=== PATIENT | male | born 1990 | race Caucasian/White ===

== ENCOUNTER 2020-07-04 18:41 | Observation (INO) | payer OTHER ==
[2020-07-04] MEDS ORDERED: SODIUM CHLORIDE 0.9% 1,000 ML IV STA ×2 (18:48)
[2020-07-04] MEDS ORDERED: ONDANSETRON 4 MG/2 ML VIAL IVP STA (18:48)
--- NOTE | 2020-07-04 18:53 | ED ---
Nausea/Vomiting/Diarrhea HPI - General Stated complaint: overdose Time Seen by Provider: 07/04/20 18:41 Source: patient, EMS, RN notes reviewed Mode of arrival: EMS - History of Present Illness Initial comments: This is a [age]-year-old male with a history of substance abuse who does admit to snorting heroin and crack cocaine earlier today states he hasn't felt well all day he did have a headache but denies any right now he also complains of persistent nausea vomiting and generalized weakness. No loss of consciousness he did call 911 himself due to fear he overdosed. He was brought in by EMS. He denies any other substance abuse any other complaints no trauma no other modifying factors MD complaint: nausea, vomiting, other - Related Data Home Medications Medication Instructions Recorded Confirmed No Known Home Medications 07/04/20 07/04/20 Allergies Allergy/AdvReac Type Severity Reaction Status Date / Time No Known Allergies Allergy Verified 07/04/20 20:20 Review of Systems ROS Statement: Those systems with pertinent positive or pertinent negative responses have been documented in the HPI. ROS Other: All systems not noted in ROS Statement are negative. General Exam - General Exam Comments Initial Comments: This is a well-developed well-nourished awake alert male who is actively vomiting during the initial evaluation General appearance: alert, anxious, in distress Head exam: Present: atraumatic, normocephalic, normal inspection Eye exam: Present: normal appearance, PERRL, EOMI. Absent: scleral icterus, conjunctival injection, periorbital swelling ENT exam: Present: mucous membranes dry Neck exam: Present: normal inspection. Absent: tenderness, meningismus, lymphadenopathy Respiratory exam: Present: normal lung sounds bilaterally. Absent: respiratory distress, wheezes, rales, rhonchi, stridor Cardiovascular Exam: Present: regular rate, normal rhythm, normal heart sounds. Absent: systolic murmur, diastolic murmur, rubs, gallop, clicks GI/Abdominal exam: Present: soft, normal bowel sounds. Absent: distended, tenderness, guarding, rebound, rigid Extremities exam: Present: normal inspection, full ROM, normal capillary refill. Absent: tenderness, pedal edema, joint swelling, calf tenderness Back exam: Present: normal inspection Neurological exam: Present: alert, oriented X3, CN II-XII intact Psychiatric exam: Present: normal affect, normal mood Skin exam: Present: warm, dry, intact, normal color. Absent: rash Course Vital Signs 07/04/20 07/04/20 18:49 20:00 Temperature 98.3 F Pulse Rate 68 77 Respiratory 18 20 Rate Blood Pressure 124/89 113/76 O2 Sat by Pulse 96 96 Oximetry Medical Decision Making - Medical Decision Making I did discuss the findings the patient he does have elevated troponin as well as elevated lactic acid which is likely secondary to dehydration. Patient will be admitted for rule out. Case is discussed with Dr. Kiser the patient does state he is feeling improved however. - Lab Data Result diagrams: 07/04/20 19:09 07/04/20 19:09 Lab Results 07/04/20 07/04/20 07/04/20 Range/Units 19:09 19:09 19:09 WBC 18.0 H (3.8-10.6) k/uL RBC 4.66 (4.30-5.90) m/uL Hgb 14.7 (13.0-17.5) gm/dL Hct 45.4 (39.0-53.0) % MCV 97.5 (80.0-100.0) fL MCH 31.5 (25.0-35.0) pg MCHC 32.3 (31.0-37.0) g/dL RDW 12.8 (11.5-15.5) % Plt Count 237 (150-450) k/uL MPV 7.7 Neutrophils % 88 % Lymphocytes % 5 % Monocytes % 5 % Eosinophils % 1 % Basophils % 0 % Neutrophils # 15.9 H (1.3-7.7) k/uL Lymphocytes # 1.0 (1.0-4.8) k/uL Monocytes # 0.8 (0-1.0) k/uL Eosinophils # 0.2 (0-0.7) k/uL Basophils # 0.0 (0-0.2) k/uL Sodium 143 (137-145) mmol/L Potassium 4.7 (3.5-5.1) mmol/L Chloride 107 (98-107) mmol/L Carbon Dioxide 22 (22-30) mmol/L Anion Gap 14 mmol/L BUN 16 (9-20) mg/dL Creatinine 1.27 H (0.66-1.25) mg/dL Est GFR (CKD-EPI)AfAm 86 (>60 ml/min/1.73 sqM) Est GFR (CKD-EPI)NonAf 74 (>60 ml/min/1.73 sqM) Glucose 91 (74-99) mg/dL Plasma Lactic Acid Nick 5.3 H* (0.7-2.0) mmol/L Calcium 8.8 (8.4-10.2) mg/dL Magnesium 2.3 (1.6-2.3) mg/dL Total Bilirubin 0.3 (0.2-1.3) mg/dL AST 36 (17-59) U/L ALT 37 (4-49) U/L Alkaline Phosphatase 59 (38-126) U/L Creatine Kinase 219 H (55-170) U/L Troponin I (0.000-0.034) ng/mL Total Protein 8.5 H (6.3-8.2) g/dL Albumin 5.4 H (3.5-5.0) g/dL Amylase 45 (30-110) U/L Lipase 107 (23-300) U/L Urine Opiates Screen (NotDetected) Ur Oxycodone Screen (NotDetected) Urine Methadone Screen (NotDetected) Ur Propoxyphene Screen (NotDetected) Ur Barbiturates Screen (NotDetected) U Tricyclic Antidepress (NotDetected) Ur Phencyclidine Scrn (NotDetected) Ur Amphetamines Screen (NotDetected) U Methamphetamines Scrn (NotDetected) U Benzodiazepines Scrn (NotDetected) Urine Cocaine Screen (NotDetected) U Marijuana (THC) Screen (NotDetected) 07/04/20 07/04/20 Range/Units 19:09 20:16 WBC (3.8-10.6) k/uL RBC (4.30-5.90) m/uL Hgb (13.0-17.5) gm/dL Hct (39.0-53.0) % MCV (80.0-100.0) fL MCH (25.0-35.0) pg MCHC (31.0-37.0) g/dL RDW (11.5-15.5) % Plt Count (150-450) k/uL MPV Neutrophils % % Lymphocytes % % Monocytes % % Eosinophils % % Basophils % % Neutrophils # (1.3-7.7) k/uL Lymphocytes # (1.0-4.8) k/uL Monocytes # (0-1.0) k/uL Eosinophils # (0-0.7) k/uL Basophils # (0-0.2) k/uL Sodium (137-145) mmol/L Potassium (3.5-5.1) mmol/L Chloride (98-107) mmol/L Carbon Dioxide (22-30) mmol/L Anion Gap mmol/L BUN (9-20) mg/dL Creatinine (0.66-1.25) mg/dL Est GFR (CKD-EPI)AfAm (>60 ml/min/1.73 sqM) Est GFR (CKD-EPI)NonAf (>60 ml/min/1.73 sqM) Glucose (74-99) mg/dL Plasma Lactic Acid Nick (0.7-2.0) mmol/L Calcium (8.4-10.2) mg/dL Magnesium (1.6-2.3) mg/dL Total Bilirubin (0.2-1.3) mg/dL AST (17-59) U/L ALT (4-49) U/L Alkaline Phosphatase (38-126) U/L Creatine Kinase (55-170) U/L Troponin I 0.084 H* (0.000-0.034) ng/mL Total Protein (6.3-8.2) g/dL Albumin (3.5-5.0) g/dL Amylase (30-110) U/L Lipase (23-300) U/L Urine Opiates Screen Not Detected (NotDetected) Ur Oxycodone Screen Not Detected (NotDetected) Urine Methadone Screen Not Detected (NotDetected) Ur Propoxyphene Screen Not Detected (NotDetected) Ur Barbiturates Screen Not Detected (NotDetected) U Tricyclic Antidepress Not Detected (NotDetected) Ur Phencyclidine Scrn Not Detected (NotDetected) Ur Amphetamines Screen Not Detected (NotDetected) U Methamphetamines Scrn Not Detected (NotDetected) U Benzodiazepines Scrn Not Detected (NotDetected) Urine Cocaine Screen Detected H (NotDetected) U Marijuana (THC) Screen Not Detected (NotDetected) - EKG Data -: EKG Interpreted by Me EKG shows normal: sinus rhythm EKG Comments: Sinus rhythm a 96 VT interval 162 QRS 100 QT since QTC 398/50 , prolonged QT - Radiology Data Radiology results: report reviewed (Imaging reviewed no acute findings.), image reviewed Disposition Clinical Impression: Substance abuse, Elevated troponin, Lactic acidosis, Dehydration, Gastritis Disposition: ADMITTED IP TO THIS [facility] Condition: Fair Referrals: None,Stated [Primary Care Provider] - 1-2 days
[2020-07-04 19:22] LABS: Basophils % (A) 0 %; Eosinophils # (A) 0.2 k/uL (0-0.7); Eosinophils % (A) 1 %; HCT 45.4 % (39.0-53.0); HGB 14.7 gm/dL (13.0-17.5); Lymphocytes % (A) 5 %; MCH 31.5 pg (25.0-35.0); MCHC 32.3 g/dL (31.0-37.0); MCV 97.5 fL (80.0-100.0); Mean Platelet Volume 7.7; Monocytes # (A) 0.8 k/uL (0-1.0); Monocytes % (A) 5 %; Neutrophils # (A) 15.9 k/uL (1.3-7.7); Neutrophils % (A) 88 %; Platelet Count 237 k/uL (150-450); RBC 4.66 m/uL (4.30-5.90); RDW 12.8 % (11.5-15.5)
[2020-07-04 19:32] LABS: Albumin 5.4 g/dL (3.5-5.0); Calcium 8.8 mg/dL (8.4-10.2); Magnesium 2.3 mg/dL (1.6-2.3); Potassium 4.7 mmol/L (3.5-5.1); Total Bilirubin 0.3 mg/dL (0.2-1.3); Total Protein 8.5 g/dL (6.3-8.2)
--- NOTE | 2020-07-04 19:45 | CT ---
EXAMINATION TYPE: CT brain wo con DATE OF EXAM: 07/04/2020 COMPARISON: None HISTORY: Headache, possible overdose. CT DLP: 1189.4 mGycm Automated exposure control for dose reduction was used. Ventricles and sulci appear normal. There is no mass effect nor midline shift. There is no evidence o f intracranial hemorrhage. Calvarium is intact. Skull base is intact. Sella turcica is normal. IMPRESSION: Normal unenhanced head CT scan.
--- NOTE | 2020-07-04 19:46 | XR ---
EXAMINATION TYPE: XR KUB DATE OF EXAM: 07/04/2020 COMPARISON: NONE HISTORY: Abdominal pain TECHNIQUE: 2 views upright FINDINGS: There is no sign of intestinal obstruction or pneumoperitoneum. Fecal pattern is normal. Th ere are no pathologic calcifications. Bony structures are intact. Lung bases are clear. IMPRESSION: Nonacute abdomen.
[2020-07-04] MEDS ORDERED: SODIUM CHLORIDE 0.9% 1,000 ML IV ONE (20:00)
[2020-07-04 20:56] LABS: Amphetamine Screen,Urine Not Detected (NotDetected); Barbiturate Screen,Urine Not Detected (NotDetected); Benzodiazepines Screen,Urine Not Detected (NotDetected); Cocaine Screen,Urine Detected (NotDetected); Methadone Screen, Urine Not Detected (NotDetected); Opiate Screen,Urine Not Detected (NotDetected); Oxycodone Screen, Urine Not Detected (NotDetected); Phencyclidine Screen,Urine Not Detected (NotDetected); Tricyclic Antidepressant,Urine Not Detected (NotDetected); Urn Cannabinoid Scrn Not Detected (NotDetected)
--- NOTE | 2020-07-04 21:05 | XR ---
EXAMINATION TYPE: XR chest 2V DATE OF EXAM: 07/04/2020 COMPARISON: NONE HISTORY: Chest pain TECHNIQUE: 2 views FINDINGS: Heart and mediastinum are normal. Lungs are clear. Diaphragm is normal. Bony thorax appears normal. IMPRESSION: Normal chest.
[2020-07-04] MEDS ORDERED: ASPIRIN 81 MG PO STA (21:18)
[2020-07-04] MEDS ORDERED: NITROGLYCERIN SL TABS 0.4 MG TAB SUBLINGUAL PRN (21:18)
[2020-07-05 04:41] VITALS: TEMP 98.9
[2020-07-05 08:55] VITALS: RESP 16
[2020-07-05] MEDS ORDERED: ASPIRIN 325 MG TAB PO SCH (09:00)
[2020-07-05] MEDS ORDERED: SODIUM CHLORIDE 0.9% 1,000 ML in EMPTY BAG 1 BAG IV ONE (09:37)
[2020-07-05] MEDS ORDERED: ATORVASTATIN 80 MG TAB PO STA (09:37)
[2020-07-05 10:49] LABS: African American GFR (CKD) >90 (>60 ml/min/1.73 sqM); Non-African American GFR(CKD) >90 (>60 ml/min/1.73 sqM)
--- NOTE | 2020-07-05 10:57 | P.CRDCN ---
History of Present Illness History of present illness: HISTORY OF PRESENTING ILLNESS This is a pleasant 30-year-old male past medical history significant for illicit drug use. He has no prior history of coronary artery disease and does not follow with a sap security architect for any reason. We have been asked to see in consultation for elevated troponin. The patient states yesterday he smoked crack and snorted heroin. Shortly after snorting heroin he had a probable syncopal episode. He states he woke up on the floor shed. He felt weak, dizzy, nauseated and overall unwell. His tongue hurts and he thinks he may have that it. He denies having any symptoms of chest discomfort. DIAGNOSTICS EKG reveals sinus mechanism heart rate of 96 with a QTC of 502 ms. Chest xray negative for an acute cardiopulmonary process. Laboratory reviewed, and ABC 18, hemoglobin 14.7, platelets 237, sodium 143, potassium 4.7, creatinine 1.27 on admission repeat today after IV hydration 0.92, lactic acid 5. 3 repeat after hydration 1.5, troponin 0.084, 0.203 and 0.195. He takes no daily cardiac medications. REVIEW OF SYSTEMS At the time of my exam: CONSTITUTIONAL: Denies fever or chills. CARDIOVASCULAR: Denies chest pain, shortness of breath, orthopnea, PND or palpitations. RESPIRATORY: Denies cough. GASTROINTESTINAL: Denies abdominal pain, diarrhea, constipation, nausea or vomiting. MUSCULOSKELETAL: Denies myalgias. NEUROLOGIC: Denies numbness, tingling or weakness. ENDOCRINE: Denies fatigue, weight change, polydipsia or polyurina. GENITOURINARY: Denies burning, hematuria or urgency with micturation. HEMATOLOGIC: Denies history of anemia or bleeding. PHYSICAL EXAMINATION Blood pressure 111/67 heart rate 79 afebrile and maintaining oxygen saturation on room air. CONSTITUTIONAL: No apparent distress. HEENT: Head is normocephalic. Pupils are equal, round. Sclerae anicteric. Mucous membranes of the mouth are moist. No JVD. No carotid bruit. CHEST EXAMINATION: Lungs are clear to auscultation. No chest wall tenderness is noted on palpation or with deep breathing. HEART EXAMINATION: Regular rate and rhythm. S1, S2 heard. No murmurs, gallops or rub. ABDOMEN: Soft, nontender. Positive bowel sounds. EXTREMITIES: 2+ peripheral pulses, no lower extremity edema and no calf tenderness. NEUROLOGIC EXAMINATION: Patient is awake, alert and oriented x3. ASSESSMENT Non-ST elevated myocardial infarction Leukocytosis Illicit drug use with possible overdose Lactic acidosis, improved Acute kidney injury, improved PLAN Obtain 2-D echocardiogram and Doppler study to assess cardiac structure and function. Troponin elevation could be secondary to possible hypoxia with a possible overdose however is a significant rise in his second level. Recommend proceeding with cardiac catheterization to assess for underlying coronary artery disease. I have discussed the risks, benefits and alternative therapies for the above-mentioned procedure and for both sedation/analgesia as well as necessary blood product administration, if indicated, as they pertain to this patient. The patient has indicated understanding and acceptance of the ris ks and procedures discussed. Complete cessation of illicit drug use discussed at length with the patient. Further recommendations to follow based upon clinical course. Thank you kindly for this consultation. Nurse Practitioner note has been reviewed, I agree with a documented findings and plan of care. Patient was seen and examined. Past Medical History Past Medical History: No Reported History History of Any Multi-Drug Resistant Organisms: None Reported Past Surgical History: Orthopedic Surgery Additional Past Surgical History / Comment(s): lt arm Past Anesthesia/Blood Transfusion Reactions: No Reported Reaction Past Psychological History: Anxiety, Depression Smoking Status: Current some day smoker Past Alcohol Use History: Occasional Past Drug Use History: Cocaine, Heroin, Marijuana Medications and Allergies Home Medications Medication Instructions Recorded Confirmed Type No Known Home Medications 07/04/20 07/04/20 History Allergies Allergy/AdvReac Type Severity Reaction Status Date / Time No Known Allergies Allergy Verified 07/04/20 20:20 Physical Exam Vitals: Vital Signs Temp Pulse Pulse Resp BP BP Pulse Ox 07/05/20 05:00 74 18 07/05/20 04:00 98.9 F 74 18 98/57 97 07/05/20 01:59 74 20 100/49 95 07/05/20 00:00 82 20 105/44 96 07/04/20 23:31 18 98/57 97 07/04/20 22:00 103 H 20 139/44 99 07/04/20 20:00 77 20 113/76 96 07/04/20 18:49 98.3 F 68 18 124/89 96 Intake and Output 07/04/20 07/05/20 07/05/20 22:59 06:59 14:59 Other: Voiding Method Toilet Urinal Weight 112.491 kg 112.491 kg Results 07/04/20 19:09 07/05/20 07:46 Cardiac Enzymes 07/04/20 07/04/20 07/04/20 Range/Units 19:09 19:09 22:16 AST 36 (17-59) U/L Troponin I 0.084 H* 0.203 H* (0.000-0.034) ng/mL 07/05/20 Range/Units 00:48 AST (17-59) U/L Troponin I 0.195 H* (0.000-0.034) ng/mL CBC 07/04/20 Range/Units 19:09 WBC 18.0 H (3.8-10.6) k/uL RBC 4.66 (4.30-5.90) m/uL Hgb 14.7 (13.0-17.5) gm/dL Hct 45.4 (39.0-53.0) % Plt Count 237 (150-450) k/uL Comprehensive Metabolic Panel 07/04/20 Range/Units 19:09 Sodium 143 (137-145) mmol/L Potassium 4.7 (3.5-5.1) mmol/L Chloride 107 (98-107) mmol/L Carbon Dioxide 22 (22-30) mmol/L BUN 16 (9-20) mg/dL Creatinine 1.27 H (0.66-1.25) mg/dL Glucose 91 (74-99) mg/dL Calcium 8.8 (8.4-10.2) mg/dL AST 36 (17-59) U/L ALT 37 (4-49) U/L Alkaline Phosphatase 59 (38-126) U/L Total Protein 8.5 H (6.3-8.2) g/dL Albumin 5.4 H (3.5-5.0) g/dL Current Medications Generic Name Dose Route Start Last Admin Trade Name Freq PRN Reason Stop Dose Admin Aspirin 325 mg 07/05/20 09:00 Aspirin 325 Mg Tab PO DAILY DANI Nitroglycerin 0.4 mg 07/04/20 21:18 Nitroglycerin Sl Tabs 0.4 Mg Tab SUBLINGUAL Q5M PRN Chest Pain Intake and Output 07/04/20 07/05/20 07/05/20 22:59 06:59 14:59 Other: Voiding Method Toilet Urinal Weight 112.491 kg 112.491 kg 07/04/20 19:09 07/04/20 19:09
[2020-07-05] MEDS ORDERED: IV FLUID CONTINUATION 400 ML IV ONE (11:50)
[2020-07-05] MEDS ORDERED: VERAPAMIL 2.5 MG/ML 2 ML AMP ONE (11:56)
[2020-07-05] MEDS ORDERED: LIDOCAINE 1% INJ 10MG/ML (20 ML MDV) ONE (11:56)
[2020-07-05] MEDS ORDERED: HEPARIN SODIUM 1,000 UN/ML (10ML VL) ONE (11:56)
[2020-07-05] MEDS ORDERED: MIDAZOLAM 2 MG/2 ML VIAL IV ONE (11:58)
[2020-07-05] MEDS ORDERED: LIDOCAINE 1% INJ 10MG/ML (20 ML MDV) SQ ONE (12:00)
[2020-07-05] MEDS: VERAPAMIL SYRINGE (5 MG/10 ML) INTRAARTER ONE ×2 (12:03→12:11)
[2020-07-05] MEDS ORDERED: HEPARIN SODIUM 1,000 UN/ML (10ML VL) IV ONE (12:05)
[2020-07-05] MEDS ORDERED: IOPAMIDOL-370 100ML BTL INJ ONE (12:11)
--- NOTE | 2020-07-05 12:18 | P.HPIM ---
History of Present Illness Patient is an 30-year-old male came in because of chest pain found to have elevated troponin and patient admits to using the and snorting cocaine as well as possibly heroine. Patient drug screen is positive for cocaine. Patient den ied any IV drug use. Patient is dehydrated because of cocaine and also found to have elevated troponin because of possible coronary vasospasm patient was evaluated by cardiology. Patient is going for cardiac catheterization today. Patient also had a possible syncopal episode. She presently denied any chest discomfort at this time. [place] weak and dizzy and nauseous. Review of Systems REVIEW OF SYSTEMS: CONSTITUTIONAL: No fever, no malaise, no fatigue. HEENT: No recent visual problems or hearing problems. Denied any sore throat. CARDIOVASCULAR: No chest pain, orthopnea, PND, no palpitations. PULMONARY: No shortness of breath, no cough, no hemoptysis. GASTROINTESTINAL: No diarrhea, no nausea, no vomiting, no abdominal pain. NEUROLOGICAL: No headaches, no weakness, no numbness. HEMATOLOGICAL: Denies any bleeding or petechiae. GENITOURINARY: Denies any burning micturition, frequency, or urgency. MUSCULOSKELETAL/RHEUMATOLOGICAL: Denies any joint pain, swelling, or any muscle pain. ENDOCRINE: Denies any polyuria or polydipsia. The rest of the 14-point review of systems is negative. Past Medical History Past Medical History: No Reported History History of Any Multi-Drug Resistant Organisms: None Reported Past Surgical History: Orthopedic Surgery Additional Past Surgical History / Comment(s): lt arm Past Anesthesia/Blood Transfusion Reactions: No Reported Reaction Past Psychological History: Anxiety, Depression Smoking Status: Current some day smoker Past Alcohol Use History: Occasional Past Drug Use History: Cocaine, Heroin, Marijuana Medications and Allergies Home Medications Medication Instructions Recorded Confirmed Type No Known Home Medications 07/04/20 07/04/20 History Allergies Allergy/AdvReac Type Severity Reaction Status Date / Time No Known Allergies Allergy Verified 07/04/20 20:20 Physical Exam Vitals: Vital Signs Temp Pulse Pulse Resp BP BP Pulse Ox 07/05/20 08:55 79 16 111/67 97 07/05/20 08:45 71 18 07/05/20 05:00 74 18 07/05/20 04:00 98.9 F 74 18 98/57 97 07/05/20 01:59 74 20 100/49 95 07/05/20 00:00 82 20 105/44 96 07/04/20 23:31 18 98/57 97 07/04/20 22:00 103 H 20 139/44 99 07/04/20 20:00 77 20 113/76 96 07/04/20 18:49 98.3 F 68 18 124/89 96 Intake and Output 07/04/20 07/05/20 07/05/20 22:59 06:59 14:59 Other: Voiding Method Toilet Toilet Urinal Urinal Weight 112.491 kg 112.491 kg PHYSICAL EXAMINATION: GENERAL: The patient is alert and oriented x3, not in any acute distress. Well developed, well nourished. HEENT: Pupils are round and equally reacting to light. EOMI. No scleral icterus. No conjunctival pallor. Normocephalic, atraumatic. No pharyngeal erythema. No thyromegaly. CARDIOVASCULAR: S1 and S2 present. No murmurs, rubs, or gallops. PULMONARY: Chest is clear to auscultation, no wheezing or crackles. ABDOMEN: Soft, nontender, nondistended, normoactive bowel sounds. No palpable organomegaly. MUSCULOSKELETAL: No joint swelling or deformity. EXTREMITIES: No cyanosis, clubbing, or pedal edema. NEUROLOGICAL: Gross neurological examination did not reveal any focal deficits. SKIN: No rashes. Results CBC & Chem 7: 07/04/20 19:09 07/05/20 07:46 Labs: Abnormal Lab Results - Last 24 Hours (Table) 07/04/20 07/04/20 07/04/20 Range/Units 19:09 19:09 19:09 WBC 18.0 H (3.8-10.6) k/uL Neutrophils # 15.9 H (1.3-7.7) k/uL Creatinine 1.27 H (0.66-1.25) mg/dL Plasma Lactic Acid Nick 5.3 H* (0.7-2.0) mmol/L Creatine Kinase 219 H (55-170) U/L Troponin I (0.000-0.034) ng/mL Total Protein 8.5 H (6.3-8.2) g/dL Albumin 5.4 H (3.5-5.0) g/dL Urine Cocaine Screen (NotDetected) 07/04/20 07/04/20 07/04/20 Range/Units 19:09 20:16 22:16 WBC (3.8-10.6) k/uL Neutrophils # (1.3-7.7) k/uL Creatinine (0.66-1.25) mg/dL Plasma Lactic Acid Nick (0.7-2.0) mmol/L Creatine Kinase (55-170) U/L Troponin I 0.084 H* 0.203 H* (0.000-0.034) ng/mL Total Protein (6.3-8.2) g/dL Albumin (3.5-5.0) g/dL Urine Cocaine Screen Detected H (NotDetected) 07/05/20 Range/Units 00:48 WBC (3.8-10.6) k/uL Neutrophils # (1.3-7.7) k/uL Creatinine (0.66-1.25) mg/dL Plasma Lactic Acid Nick (0.7-2.0) mmol/L Creatine Kinase (55-170) U/L Troponin I 0.195 H* (0.000-0.034) ng/mL Total Protein (6.3-8.2) g/dL Albumin (3.5-5.0) g/dL Urine Cocaine Screen (NotDetected) Thrombosis Risk Factor Assmnt - Choose All That Apply Any of the Below Risk Factors Present?: No Other Risk Factors: No Other congenital or acquired thrombophilia - If yes, enter type in comment: No Thrombosis Risk Factor Assessment Level: Very Low Risk Assessment and Plan Plan: - non-ST elevation microinfarction: Possibly secondary to coronary vasospasm for cocaine use. Cardiology valid the patient that according cardiac ablation and patient is going for cardiac catheterization today. EKG did not show any significant abnormality. -Dehydration and acute renal failure secondary to cocaine use [place]- leukocytosis reactive without any evidence of infection -Lactic acidosis secondary to dehydration induced by cocaine patient is receiving IV fluids. -Illicit drug use or cocaine use: Counseling was provided patient is willing to quit using cocaine.
[2020-07-05] MEDS ORDERED: ZOLPIDEM 5 MG TAB PO PRN (12:24)
[2020-07-05] MEDS ORDERED: ACETAMINOPHEN TAB 325 MG TAB PO PRN (12:24)
[2020-07-05] MEDS ORDERED: SODIUM CHLORIDE 0.9% 1,000 ML IV SCH (12:30)
--- NOTE | 2020-07-05 12:41 | CC ---
CARDIAC CATHETERIZATION REPORT DATE OF SERVICE: 07/05/2020 PROCEDURE: Left heart catheterization and coronary angiography. PERFORMED BY: Dr. Boby Giang. Moderate conscious sedation time was 14 minutes. Patient was administered Versed. His oxygen saturation, hemodynamics and EKG were monitored closely. CLINICAL INFORMATION: Mr. Logan Cruz is a 30-year-old gentleman who apparently had some cocaine yesterday and following that he became unresponsive, comes into the hospital with what seems to be an episode of chest discomfort. Troponin elevation, patient apparently is not crack cocaine and heroin and did not feel well, became somewhat unresponsive and generalized weakness, persistent nausea and he felt he overdosed and called 911. His EKG revealed QT prolongation. No clear-cut ST elevation, but he had chest pain and troponin elevation and therefore I was recommended coronary angiography after due discussion regarding risks, benefits, and options. PROCEDURE NOTE: Under local anesthesia and strict aseptic precautions, a 6-[place]og[place] introducer was placed in the right radial artery. Using a JR4 and JL3.5 catheters, I performed coronary angiography and the same right catheter was used to check LV pressures. LV gram was not performed. The sheath was taken out and a TR band applied as per protocol. Patient's oxygen saturation of the fingers of the right hand was more than 95%. He tolerated the procedure well without complications. CARDIAC CATHETERIZATION FINDINGS: Left end-diastolic pressure was about 13 mmHg without any gradient across the aortic valve. CORONARY ANGIOGRAPHY FINDINGS: RIGHT CORONARY ARTERY: Large dominant vessel. No significant disease distally bifurcates into PDA and PLV, both of which supply a sizable amount of myocardium. LEFT MAIN CORONARY ARTERY: This is a very long vessel, free of significant disease. Bifurcates into LAD and circumflex. LEFT ANTERIOR DESCENDING CORONARY ARTERY: Good caliber vessel, extends along the anterior wall, has minor irregularities, no significant disease, gives off a good-sized diagonal branch in the midportion. LEFT POSTERIOR CIRCUMFLEX CORONARY ARTERY: A nondominant vessel, gives off a single obtuse marginal that bifurcates into 2 branches. No significant disease. LEFT VENTRICULOGRAM: Left ventriculogram was not performed. FINAL IMPRESSION: This patient has a right dominant system, normal filling pressures. No gradient across the aortic valve and no significant obstructive CAD. RECOMMENDATION: Findings were discussed with the patient. I also spoke to his mother by phone. The patient has no obstructive CAD and his episode of unresponsiveness and hypoxia may be the cause of his troponin elevation. Patient has been counseled to refrain from cocaine and other stimulants altogether. He will be discharged later on today. We will keep an eye on the QT prolongation, which already shows some improvement. He can be discharged tomorrow if he remains stable. The details were discussed with the patient and his mother by phone. JESSICA / SALOMON: [phone] /
--- NOTE | 2020-07-05 12:59 | ECHOF ---
Referral Reason:Elevated troponin, substance abuse MEASUREMENTS -------- HEIGHT: 195.6 cm WEIGHT: 112.5 kg BP: 98/57 RVIDd: 2.6 cm (< 3.3) IVSd: 1.2 cm (0.6 - 1.1) LVIDd: 5.4 cm (3.9 - 5.3) LVPWd: 1.1 cm (0.6 - 1.1) IVSs: 1.8 cm LVIDs: 3.5 cm LVPWs: 1.8 cm LA Diam: 3.2 cm (2.7 - 3.8) LAESV Index (A-L): 29.15 ml/m Ao Diam: 3.4 cm (2.0 - 3.7) AV Cusp: 2.3 cm (1.5 - 2.6) MV EXCURSION: 19.132 mm (> 18.000) MV EF SLOPE: 166 mm/s (70 - 150) EPSS: 0.9 cm MV E Joseph: 1.13 m/s MV DecT: 162 ms MV A Joseph: 0.58 m/s MV E/A Ratio: 1.95 RAP: 5.00 mmHg RVSP: 27.81 mmHg FINDINGS -------- Sinus rhythm. This was a technically adequate study. The left ventricular size is normal. There is borderline concentric left ventricular hypertrophy. Overall left ventricular systolic function is normal with, an EF between 60 - 65 %. The right ventricle is normal in size. The left atrium is normal in size. The right atrium is normal in size. Interatrial and interventricular septum intact. The aortic valve is trileaflet and appears structurally normal. There is trace mitral regurgitation. Mild tricuspid regurgitation present. Right ventricular systolic pressure is normal at < 35 mmHg. There is no pulmonic regurgitation present. The aortic root size is normal. Normal inferior vena cava with normal inspiratory collapse consistent with estimated right atrial pre ssure of 5 mmHg. The inferior vena cava is mildly dilated. There is no pericardial effusion. CONCLUSIONS -------- 1. The left ventricular size is normal. 2. There is borderline concentric left ventricular hypertrophy. 3. Overall left ventricular systolic function is normal with, an EF between 60 - 65 %. 4. There is trace mitral regurgitation. 5. Mild tricuspid regurgitation present. 6. There is no pericardial effusion. [employer]: Marcelle Rogel RDCS
[2020-07-05 14:33] LABS: Cholesterol 73 mg/dL (<200); HDL Cholesterol 40 mg/dL (40-60); LDL Cholesterol,Calculated 25 mg/dL (0-99); Triglycerides 39 mg/dL (<150)
--- NOTE | 2020-07-05 15:28 | P.DS ---
Providers Date of admission: 07/04/20 21:20 Attending physician: Silvana Kiser Consults: 07/04/20 21:18 Consult Physician Urgent Consulting Provider: Mani Mckinney Consult Reason/Comments: Elevated troponin, substance abuse Do you want consulting provider notified?: Yes Primary care physician: Stated None Hospital Course: Please refer to HPI for further details. Patient had a cardiac catheterization which did not show any occlusive coronary artery disease. Patient the myocardial infarction and syncope are secondary to cocaine use and patient was counseled and was asked to refrain from a cocaine. Patient is cleared by cardiology patient will be discharged today Patient Condition at Discharge: Fair Plan - Discharge Summary Discharge Rx Participant: No New Discharge Prescriptions: No Action No Known Home Medications Discharge Medication List No Known Home Medications 07/04/20 [History] Follow up Appointment(s)/Referral(s): Stacy Giang MD [STAFF PHYSICIAN] - 07/12/20 3:45 pm Nicole De Jesus MD [STAFF PHYSICIAN] - 1 Week Patient Instructions/Handouts: Left Heart Catheterization (PRE) Discharge Disposition: HOME SELF-CARE
[2020-07-05 18:28] VITALS: BP 113/57; PULSE 70
== END 2020-07-05 19:05 | disposition home or self-care (01) ==
LOC: EC 18:41 → 3SCARD 21:20
PROVIDERS: ADMIT Internal Medicine; ATTEND Internal Medicine
DX: I21.4 Non-ST elevation (NSTEMI) myocardial infarction (principal); N17.8 Other acute kidney failure; F14.10 Cocaine abuse, uncomplicated; R77.8 Other specified abnormalities of plasma proteins; E86.0 Dehydration; E87.2 Acidosis; R09.02 Hypoxemia; D72.829 Elevated white blood cell count, unspecified; F41.9 Anxiety disorder, unspecified; F32.9 Major depressive disorder, single episode, unspecified; F17.200 Nicotine dependence, unspecified, uncomplicated
CPT/HCPCS: 82075; 96361; 96374; 99285; 36415; 93005; 93306; 93458; 80061; 80053; 82150; 82565; 82550; 83605; 83690; 83735; 84484 ×2; 85025; 80306; 71046; 74018; 70450; G0378 ×2; C1769; C1894; J2250; J2405; J2001; J1644; Q9967

== ENCOUNTER 2020-08-01 11:03 | Observation (INO) | payer OTHER ==
[2020-08-01] MEDS ORDERED: NALOXONE 0.4 MG/ML 1 ML VIAL IVP STA (11:06)
[2020-08-01] MEDS ORDERED: SODIUM CHLORIDE 0.9% 1,000 ML IV ONE (11:06)
--- NOTE | 2020-08-01 11:08 | ED ---
General Adult HPI - General Stated complaint: Overdose Time Seen by Provider: 08/01/20 11:03 Source: patient, RN notes reviewed, old records reviewed - History of Present Illness Initial comments: This is a 30-year-old male who presents emergency Department with a known history of drug abuse. Patient was found with agonal respirations and cyanotic by family EMS was called when EMS arrived they gave the patient Narcan and he s tarted breathing considerably better and oxygenation went up from a pulse ox of 76% to 99%. Patient became much more alert just prior to arrival at the hospital. Patient currently is alert and oriented 2. Patient does not have any complaints currently. Patient denies shortness of breath or difficulty breathing. Patient denies chest pain patient denies any abdominal pain patient denies nausea vomiting diarrhea. - Related Data Home Medications Medication Instructions Recorded Confirmed FLUoxetine HCL [PROzac] 20 mg PO HS 08/01/20 08/01/20 Allergies Allergy/AdvReac Type Severity Reaction Status Date / Time No Known Allergies Allergy Verified 08/01/20 12:08 Review of Systems ROS Statement: Those systems with pertinent positive or pertinent negative responses have been documented in the HPI. ROS Other: All systems not noted in ROS Statement are negative. Past Medical History Past Medical History: No Reported History History of Any Multi-Drug Resistant Organisms: None Reported Past Surgical History: Orthopedic Surgery Additional Past Surgical History / Comment(s): lt arm Past Anesthesia/Blood Transfusion Reactions: No Reported Reaction Past Psychological History: Anxiety, Depression Smoking Status: Current some day smoker Past Alcohol Use History: Occasional Past Drug Use History: Cocaine, Heroin, Marijuana General Exam - General Exam Comments Initial Comments: GENERAL: Patient is well-developed and well-nourished. Patient is nontoxic and well- hydrated and is in mild distress. ENT: Neck is soft and supple. No significant lymphadenopathy is noted. Oropharynx is clear. Moist mucous membranes. Neck has full range of motion without eliciting any pain. EYES: The sclera were anicteric and conjunctiva were pink and moist. Extraocular movements were intact and pupils were equal round and reactive to light. Eyelids were unremarkable. PULMONARY: Unlabored respirations. Good breath sounds bilaterally. No audible rales rhonchi or wheezing was noted. CARDIOVASCULAR: There is a regular rate and rhythm without any murmurs gallops or rubs. Femoral pulses are equal bilaterally ABDOMEN: Soft and nontender with normal bowel sounds. No palpable organomegaly was noted. There is no palpable pulsatile mass. SKIN: Skin is clear with no lesions or rashes and otherwise unremarkable. NEUROLOGIC: Patient is alert and oriented 2. Cranial nerves II through XII are grossly intact. Motor and sensory are also intact. Normal speech, volume and content. Symmetrical smile. MUSCULOSKELETAL: Normal extremities with adequate strength and full range of motion. No lower extremity swelling or edema. No calf tenderness. LYMPHATICS: No significant lymphadenopathy is noted PSYCHIATRIC: Unable to assess at this time he is still groggy from the narcotic overdose Course Vital Signs 08/01/20 08/01/20 08/01/20 11:04 11:15 11:33 Temperature 97.3 F L 97.6 F Pulse Rate 117 H 115 H Respiratory 14 14 18 Rate Blood Pressure 115/71 119/73 O2 Sat by Pulse 98 100 Oximetry 08/01/20 08/01/20 12:01 12:27 Temperature 97.6 F Pulse Rate 115 H Respiratory 20 Rate Blood Pressure 109/67 O2 Sat by Pulse 98 98 Oximetry Medical Decision Making - Medical Decision Making EKG shows sinus tachycardia at 118 bpm [place] interval is 150 QRS of 14 QT interval 342 QTC is 479. Patient's EKG showed some slight ST segment depression in inferior leads II, III, and F aVF as well as precordial leads V3 through V6. Patient's chest x-ray shows left upper lobe pneumonia. Patient is alert and oriented when I back in the room to reevaluate him he states he did cocaine with some heroin. The Patient was started on Rocephin and patient will be admitted. Patient's creatinine is also elevated. I spoke to the patient about possibly being suicidal he denied it he said this was not an attempt and he is not suicidal. I spoke with the [facility] agreed to admit the patient admitted the patient I wrote admitting orders. - Lab Data Result diagrams: 08/01/20 11:33 08/01/20 11:33 Lab Results 08/01/20 08/01/20 08/01/20 Range/Units 11:11 11:33 11:33 WBC 7.2 (3.8-10.6) k/uL RBC 4.48 (4.30-5.90) m/uL Hgb 14.2 (13.0-17.5) gm/dL Hct 43.7 (39.0-53.0) % MCV 97.6 (80.0-100.0) fL MCH 31.7 (25.0-35.0) pg MCHC 32.5 (31.0-37.0) g/dL RDW 12.3 (11.5-15.5) % Plt Count 234 (150-450) k/uL MPV 7.9 Neutrophils % 69 % Lymphocytes % 26 % Monocytes % 3 % Eosinophils % 0 % Basophils % 1 % Neutrophils # 4.9 (1.3-7.7) k/uL Lymphocytes # 1.8 (1.0-4.8) k/uL Monocytes # 0.2 (0-1.0) k/uL Eosinophils # 0.0 (0-0.7) k/uL Basophils # 0.1 (0-0.2) k/uL Sodium 144 (137-145) mmol/L Potassium 4.3 (3.5-5.1) mmol/L Chloride 105 (98-107) mmol/L Carbon Dioxide 17 L (22-30) mmol/L Anion Gap 22 mmol/L BUN 11 (9-20) mg/dL Creatinine 1.64 H (0.66-1.25) mg/dL Est GFR (CKD-EPI)AfAm 63 (>60 ml/min/1.73 sqM) Est GFR (CKD-EPI)NonAf 55 (>60 ml/min/1.73 sqM) Glucose 136 H (74-99) mg/dL POC Glucose (mg/dL) 126 H (75-99) mg/dL POC Glu Net Application Support Specialist ID Berkley Staton Calcium 8.3 L (8.4-10.2) mg/dL Total Bilirubin 0.4 (0.2-1.3) mg/dL AST 224 H (17-59) U/L ALT 276 H (4-49) U/L Alkaline Phosphatase 58 (38-126) U/L Troponin I (0.000-0.034) ng/mL Total Protein 7.6 (6.3-8.2) g/dL Albumin 4.9 (3.5-5.0) g/dL Urine Opiates Screen (NotDetected) Ur Oxycodone Screen (NotDetected) Urine Methadone Screen (NotDetected) Ur Propoxyphene Screen (NotDetected) Ur Barbiturates Screen (NotDetected) U Tricyclic Antidepress (NotDetected) Ur Phencyclidine Scrn (NotDetected) Ur Amphetamines Screen (NotDetected) U Methamphetamines Scrn (NotDetected) U Benzodiazepines Scrn (NotDetected) Urine Cocaine Screen (NotDetected) U Marijuana (THC) Screen (NotDetected) 08/01/20 08/01/20 Range/Units 11:33 11:34 WBC (3.8-10.6) k/uL RBC (4.30-5.90) m/uL Hgb (13.0-17.5) gm/dL Hct (39.0-53.0) % MCV (80.0-100.0) fL MCH (25.0-35.0) pg MCHC (31.0-37.0) g/dL RDW (11.5-15.5) % Plt Count (150-450) k/uL MPV Neutrophils % % Lymphocytes % % Monocytes % % Eosinophils % % Basophils % % Neutrophils # (1.3-7.7) k/uL Lymphocytes # (1.0-4.8) k/uL Monocytes # (0-1.0) k/uL Eosinophils # (0-0.7) k/uL Basophils # (0-0.2) k/uL Sodium (137-145) mmol/L Potassium (3.5-5.1) mmol/L Chloride (98-107) mmol/L Carbon Dioxide (22-30) mmol/L Anion Gap mmol/L BUN (9-20) mg/dL Creatinine (0.66-1.25) mg/dL Est GFR (CKD-EPI)AfAm (>60 ml/min/1.73 sqM) Est GFR (CKD-EPI)NonAf (>60 ml/min/1.73 sqM) Glucose (74-99) mg/dL POC Glucose (mg/dL) (75-99) mg/dL POC Glu Net Application Support Specialist ID Calcium (8.4-10.2) mg/dL Total Bilirubin (0.2-1.3) mg/dL AST (17-59) U/L ALT (4-49) U/L Alkaline Phosphatase (38-126) U/L Troponin I 0.024 (0.000-0.034) ng/mL Total Protein (6.3-8.2) g/dL Albumin (3.5-5.0) g/dL Urine Opiates Screen Detected H (NotDetected) Ur Oxycodone Screen Not Detected (NotDetected) Urine Methadone Screen Not Detected (NotDetected) Ur Propoxyphene Screen Not Detected (NotDetected) Ur Barbiturates Screen Not Detected (NotDetected) U Tricyclic Antidepress Not Detected (NotDetected) Ur Phencyclidine Scrn Not Detected (NotDetected) Ur Amphetamines Screen Not Detected (NotDetected) U Methamphetamines Scrn Not Detected (NotDetected) U Benzodiazepines Scrn Not Detected (NotDetected) Urine Cocaine Screen Detected H (NotDetected) U Marijuana (THC) Screen Not Detected (NotDetected) Disposition Clinical Impression: Heroin overdose, Cocaine abuse, Pneumonia, Acute kidney injury Disposition: ADMITTED IP TO THIS HOSP Referrals: None,Stated [Primary Care Provider] - 1-2 days Time of Disposition: 12:57
[2020-08-01 11:12] LABS: Glucose,Whole Blood 126 mg/dL (75-99)
[2020-08-01 11:50] LABS: Basophils # (A) 0.1 k/uL (0-0.2); Basophils % (A) 1 %; Eosinophils % (A) 0 %; HCT 43.7 % (39.0-53.0); HGB 14.2 gm/dL (13.0-17.5); Lymphocytes # (A) 1.8 k/uL (1.0-4.8); Lymphocytes % (A) 26 %; MCH 31.7 pg (25.0-35.0); MCHC 32.5 g/dL (31.0-37.0); MCV 97.6 fL (80.0-100.0); Mean Platelet Volume 7.9; Monocytes # (A) 0.2 k/uL (0-1.0); Monocytes % (A) 3 %; Neutrophils # (A) 4.9 k/uL (1.3-7.7); Neutrophils % (A) 69 %; Platelet Count 234 k/uL (150-450); RBC 4.48 m/uL (4.30-5.90); RDW 12.3 % (11.5-15.5); WBC 7.2 k/uL (3.8-10.6)
[2020-08-01 11:54] LABS: Amphetamine Screen,Urine Not Detected (NotDetected); Barbiturate Screen,Urine Not Detected (NotDetected); Benzodiazepines Screen,Urine Not Detected (NotDetected); Cocaine Screen,Urine Detected (NotDetected); Methadone Screen, Urine Not Detected (NotDetected); Opiate Screen,Urine Detected (NotDetected); Oxycodone Screen, Urine Not Detected (NotDetected); Phencyclidine Screen,Urine Not Detected (NotDetected); Tricyclic Antidepressant,Urine Not Detected (NotDetected); Urn Cannabinoid Scrn Not Detected (NotDetected)
[2020-08-01 12:01] LABS: Albumin 4.9 g/dL (3.5-5.0); Calcium 8.3 mg/dL (8.4-10.2); Potassium 4.3 mmol/L (3.5-5.1); Total Bilirubin 0.4 mg/dL (0.2-1.3); Total Protein 7.6 g/dL (6.3-8.2)
--- NOTE | 2020-08-01 12:03 | XR ---
EXAMINATION TYPE: XR chest 2V DATE OF EXAM: 08/01/2020 COMPARISON: Chest x-ray July 04, 2020 HISTORY: Altered mental status and weakness. TECHNIQUE: Frontal and lateral views of the chest are obtained. FINDINGS: There is new Left suprahilar airspace opacity. Right lung is clear. No pleural effusion or pneumothorax seen bilaterally. Cardiac silhouette size is stable and within normal limits. The oss eous structures are intact. IMPRESSION: Developing left upper lobe acute infiltrate.
[2020-08-01] MEDS ORDERED: cefTRIAXone IN SWFI 1,000 MG/10 ML SYRINGE IVP STA (12:54)
[2020-08-01] MEDS ORDERED: AZITHROMYCIN 500 MG in SODIUM CHLORIDE 0.9% 250 ML IVPB STA (12:58)
[2020-08-01] MEDS ORDERED: PNEUMONIA PROTOCOL UTILIZED 1 EACH MISC PO PRN (12:58)
[2020-08-01] MEDS ORDERED: ONDANSETRON 4 MG/2 ML VIAL IVP STA (13:37)
[2020-08-01] MEDS: SODIUM CHLORIDE 0.9% 1,000 ML IV SCH (13:45)
[2020-08-01] MEDS ORDERED: LORazepam 2 MG/ML INJ IV PRN (18:38)
--- NOTE | 2020-08-01 19:35 | HP ---
HISTORY AND PHYSICAL DATE OF SERVICE: 08/01/2020 CHIEF COMPLAINT: Unresponsive and overdose. HISTORY OF PRESENT ILLNESS: This 30-year-old gentleman with a past medical history of significant medical illnesses, anxiety and depression with known history of drug abuse. The patient was found with agonal respirations and cyanotic by family. EMS was called and the patient given 6 of Narcan and then the patient apparently had some resuscitated attempts also. The pulse ox went from 76-99 percent. The patient taken to [facility] and was admitted for evaluation and treatment. The chest x-ray showed possible left upper lobe aspiration pneumonia. Currently patient drowsy, able to provide only sketchy history. Most of the history taken from my discussion with staff and discussion with the ER physician, review of the chart at this time. There is no history of fever, rigors or chills. No history of trauma. PAST MEDICAL HISTORY: History of substance abuse, history of cardiac catheterization, history of DJD. MEDICATIONS: Medications prior to admission include Prozac 20 mg at bedtime. ALLERGIES: None. FAMILY HISTORY: History of diabetes in the family. SOCIAL HISTORY: History of polysubstance abuse as mentioned earlier. History of alcohol, cocaine and heroin. REVIEW OF SYSTEMS: ENT: No diminished vision. No diminished hearing. CARDIOVASCULAR: No angina or palpitations. RESPIRATIONS: As mentioned earlier. GI: as mentioned earlier. no dysuria. Nervous System: No numbness or weakness. ALLERGY/IMMUNOLOGY: No asthma or hayfever. MUSCULOSKELETAL as mentioned earlier. HEMATOLOGY/ONCOLOGY: No history of anemia. ENDOCRINE: No history of diabetes or hypothyroidism. CONSTITUTIONAL: As mentioned earlier. DERMATOLOGY: Negative. RHEUMATOLOGY: Negative. PSYCHIATRIC: As mentioned earlier. PHYSICAL EXAMINATION: Alert and oriented times three. Pulse 107. Blood pressure 103/60, respirations 16, temperature 98.1, pulse ox 97% on 2 L. HEENT: Conjunctivae normal. NECK: No JVD. CARDIOVASCULAR: S1, S2 muffled. RESPIRATORY SYSTEM: Breath sounds diminished at the bases. A few scattered rhonchi. ABDOMEN: Soft, nontender. No mass palpable. LEGS: No edema. No swelling. NERVOUS SYSTEM: Higher functions as mentioned earlier. Moves all 4 limbs. No focal motor or sensory deficits. LYMPHATICS: No lymph nodes palpable in the neck, axillae or groin. SKIN: No ulcer, no rashes and no bleeding. JOINTS: No active deforming arthropathy. LABS: CBC within normal limits and calcium is 8.3, AST 224, ALT is 276. ASSESSMENT: 1. Status post overdose with cocaine and heroin. 2. Change in mental status, metabolic encephalopathy secondary to drug overdose. 3. Left-sided aspiration pneumonia. 4. Elevated AST, ALT, acute hepatitis possibly drug-induced. 5. Increased random blood sugar. 6. Increased creatinine with acute renal failure. 7. Mild metabolic acidosis. 8. History of cardiac catheterization. 9. History of anxiety, depression. 10.History of polysubstance abuse. RECOMMENDATIONS AND DISCUSSION: In this 30-year-old gentleman who presented with multiple complex medical issues, at this time I recommend to continue the current medications, and symptomatic treatment. Otherwise, we will continue empiric antibiotics. Recent cardiac cath did not show any occlusive coronary artery disease. Otherwise, repeat labs will be ordered. Guarded prognosis. 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 Overall prognosis extremely guarded because of multiple complex medical issues in this individual with multiple complex medical issues. Ensure oxygenation. Further recommendations to follow. MMODL / IJN: [id number] / DELL
[2020-08-01] MEDS: FLUoxetine HCL 20 MG CAP PO SCH (20:06)
[2020-08-01] MEDS: HEPARIN SODIUM,PORCINE 5,000 UNIT/ML 1 ML VIAL SQ SCH (20:06)
[2020-08-01] MEDS: PIPERACILLIN-TAZOBACTAM 3.375 GM in SODIUM CHLORIDE 0.9% 100 ML IVPB SCH (20:06)
[2020-08-02] MEDS: SODIUM CHLORIDE 0.9% 1,000 ML IV SCH ×2 (02:29→18:27)
[2020-08-02] MEDS: PIPERACILLIN-TAZOBACTAM 3.375 GM in SODIUM CHLORIDE 0.9% 100 ML IVPB SCH ×3 (03:02→19:53)
[2020-08-02] MEDS: PANTOPRAZOLE 40 MG TABLET PO SCH (06:22)
[2020-08-02] MEDS: HEPARIN SODIUM,PORCINE 5,000 UNIT/ML 1 ML VIAL SQ SCH ×2 (08:11→19:53)
[2020-08-02 08:14] LABS: Basophils % (A) 0 %; Eosinophils # (A) 0.1 k/uL (0-0.7); Eosinophils % (A) 1 %; HCT 37.1 % (39.0-53.0); HGB 12.5 gm/dL (13.0-17.5); Lymphocytes # (A) 1.8 k/uL (1.0-4.8); Lymphocytes % (A) 26 %; MCH 32.2 pg (25.0-35.0); MCHC 33.7 g/dL (31.0-37.0); MCV 95.5 fL (80.0-100.0); Mean Platelet Volume 8.1; Monocytes # (A) 0.6 k/uL (0-1.0); Monocytes % (A) 8 %; Neutrophils # (A) 4.6 k/uL (1.3-7.7); Neutrophils % (A) 65 %; Platelet Count 149 k/uL (150-450); RBC 3.88 m/uL (4.30-5.90); RDW 12.1 % (11.5-15.5); WBC 7.1 k/uL (3.8-10.6)
[2020-08-02 08:31] LABS: ALT 243 U/L (4-49); AST 164 U/L (17-59); African American GFR (CKD) >90 (>60 ml/min/1.73 sqM); Albumin 3.9 g/dL (3.5-5.0); Alkaline Phosphatase 49 U/L (38-126); Anion Gap 3 mmol/L; Blood Urea Nitrogen 15 mg/dL (9-20); Calcium 8.2 mg/dL (8.4-10.2); Carbon Dioxide 32 mmol/L (22-30); Chloride 102 mmol/L (98-107); Glucose 84 mg/dL (74-99); Non-African American GFR(CKD) 88 (>60 ml/min/1.73 sqM); Potassium 4.4 mmol/L (3.5-5.1); Sodium 137 mmol/L (137-145); Total Bilirubin 0.7 mg/dL (0.2-1.3); Total Protein 6.2 g/dL (6.3-8.2)
[2020-08-02] MEDS ORDERED: AZITHROMYCIN 500 MG TAB PO SCH (09:00)
--- NOTE | 2020-08-02 09:44 | XR ---
EXAMINATION TYPE: XR chest 2V DATE OF EXAM: 08/02/2020 COMPARISON: 08/01/2020 TECHNIQUE: PA and lateral views submitted. HISTORY: Cough possible pneumonia FINDINGS: The lungs are clear and there is no pneumothorax, pleural effusion, or focal pneumonia. Heart size normal. No overt failure. Biapical pleural thickening. IMPRESSION: 1. No acute process.
--- NOTE | 2020-08-02 16:27 | PN ---
PROGRESS NOTE DATE OF SERVICE: 08/02/2020 This 30-year-old gentleman who was admitted after overdose with cocaine and heroin also had aspiration pneumonia on the left side. No chest pain. No palpitations. No fever. PHYSICAL EXAMINATION: Alert and oriented x3. Pulse 84, blood pressure 108/59, respiration 18, temperature 98.2, pulse ox 92% on room air. HEENT: Conjunctivae normal. NECK: No jugular venous distention. CARDIOVASCULAR: S1, S2 muffled. RESPIRATORY: Breath sounds diminished at the bases. No rhonchi, no crackles. ABDOMEN: Soft, nontender. NERVOUS SYSTEM: No focal deficits. LABS: WBC 7.1, hemoglobin 12.5. CO2 is 32. AST is 164, ALT is 243. ASSESSMENT: 1. Status post overdose with cocaine and heroin. 2. Change in mental status, acute metabolic encephalopathy secondary to drug overdose. 3. Left-sided aspiration pneumonia. 4. Elevated AST, ALT, acute hepatitis possibly drug induced, alcohol induced. 5. Increased random blood sugar. 6. Increased creatinine with acute renal failure. 7. Mild metabolic acidosis, present on admission. 8. History of cardiac catheterization. 9. History of anxiety, depression. 10.History of polysubstance abuse. RECOMMENDATIONS AND DISCUSSION: Recommend to continue current medications. Continue with symptomatic treatment. Continue with empiric antibiotics. Otherwise, continue to monitor. 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 Continue to monitor. Psych evaluation and guarded prognosis because of multiple complex medical issues. Further recommendations to follow. MMODL / IJN: [id number] /
[2020-08-02] MEDS: FLUoxetine HCL 20 MG CAP PO SCH (19:53)
[2020-08-03] MEDS: SODIUM CHLORIDE 0.9% 1,000 ML IV SCH (03:04)
[2020-08-03] MEDS: PIPERACILLIN-TAZOBACTAM 3.375 GM in SODIUM CHLORIDE 0.9% 100 ML IVPB SCH ×2 (03:04→11:43)
[2020-08-03 03:29] VITALS: RESP 18
[2020-08-03] MEDS: PANTOPRAZOLE 40 MG TABLET PO SCH (06:10)
[2020-08-03 08:34] LABS: Basophils % (A) 1 %; Eosinophils # (A) 0.1 k/uL (0-0.7); Eosinophils % (A) 3 %; HCT 37.2 % (39.0-53.0); HGB 12.8 gm/dL (13.0-17.5); Lymphocytes # (A) 1.2 k/uL (1.0-4.8); Lymphocytes % (A) 32 %; MCH 32.9 pg (25.0-35.0); MCHC 34.5 g/dL (31.0-37.0); MCV 95.1 fL (80.0-100.0); Mean Platelet Volume 8.1; Monocytes # (A) 0.3 k/uL (0-1.0); Monocytes % (A) 8 %; Neutrophils # (A) 2.1 k/uL (1.3-7.7); Neutrophils % (A) 55 %; Platelet Count 127 k/uL (150-450); RBC 3.91 m/uL (4.30-5.90); RDW 11.9 % (11.5-15.5); WBC 3.8 k/uL (3.8-10.6)
[2020-08-03 08:51] LABS: ALT 182 U/L (4-49); AST 85 U/L (17-59); African American GFR (CKD) >90 (>60 ml/min/1.73 sqM); Albumin 3.8 g/dL (3.5-5.0); Alkaline Phosphatase 49 U/L (38-126); Anion Gap 4 mmol/L; Blood Urea Nitrogen 10 mg/dL (9-20); Calcium 8.7 mg/dL (8.4-10.2); Carbon Dioxide 32 mmol/L (22-30); Chloride 103 mmol/L (98-107); Glucose 98 mg/dL (74-99); Non-African American GFR(CKD) >90 (>60 ml/min/1.73 sqM); Potassium 4.1 mmol/L (3.5-5.1); Sodium 139 mmol/L (137-145); Total Bilirubin 0.7 mg/dL (0.2-1.3); Total Protein 6.3 g/dL (6.3-8.2)
[2020-08-03] MEDS: HEPARIN SODIUM,PORCINE 5,000 UNIT/ML 1 ML VIAL SQ SCH (11:29)
--- NOTE | 2020-08-03 13:36 | P.CN ---
Psychiatric Consult - . Consult date: 08/03/20 Consult:: IDENTIFYING DATA: This patient is a single, employed, 30-year-old male who was admitted for overdose. HISTORY OF PRESENT ILLNESS: The patient presented to the hospital on 08/01/2020 after overdosing on heroin and cocaine. Patient was discovered by his family to be cyanotic when EMS arrived to give the patient are can which improved his pulse oximetry from 76% to 99%. Psychiatry has been consulted for psychiatric evaluation of overdose. Patient currently expresses that he has been stressed due to limited work opportunities but is not endorsing any significant symptoms of depression at this time. Patient vehemently denies any suicidal or homicidal ideation, intention, and/or plan. He vehemently denies that this was an intentional overdose. Patient reported that he was trying to get high. He does express remorse for his actions. He is currently prescribed Prozac by his outpatient provider for management of depression and anxiety. He is currently denying any hopelessness, helplessness, excessive guilt, or suicidal ideation. He denies any symptoms of mike or hypomania either. He reports no auditory or visual hallucinations. He denies any paranoia or delusions. Patient states that he was drinking heavily and when he drinks he begins to engage in all sorts of substance use. Regards to substance use, the patient reports that approximately every week and a half, he would engage in heavy alcohol use (10-15 beers in one sitting) which should be followed by drug use including smoking cocaine and taking heroin intranasally. He expresses a strong desire to find counseling services to help with this problem. PAST PSYCHIATRIC HISTORY: Patient reports a history of ADHD and depression/anxiety. He is currently prescribed Prozac from his outpatient family physician. He denies any prior inpatient psychiatric hospitalizations. He reports being prescribed Adderall in the past. He denies any prior attempts at suicide. PAST MEDICAL HISTORY: No reported medical history ALLERGIES: No known ALLERGIES CHEMICAL DEPENDENCY HISTORY: Patient reports he began using substances at the age of 12 starting with alcohol and marijuana. He began using cocaine at age 19. He did attend rehab this past fall at [facility] in [place]. He reports using substances when he is under the influence of alcohol. He states that he drinks heavily and begins using substances every week and a half or so. FAMILY PSYCHIATRIC/SUBSTANCE USE HISTORY: Patient reports multiple family members and his mother's side that have an alcohol addiction. He reports that his maternal grandfather was an alcoholic. SOCIAL HISTORY: Patient lives by himself in [place], [place]. He is the middle of 3 children. His mother lives nearby. He works by [employer] and [employer] work. He has a highschool diploma and attended some technical school. He is single with no children. MENTAL STATUS EXAM: General Appearance: Patient appears to be stated age is alert, pleasant, and cooperative. Patient appears to have fair hygiene and grooming. Behavior: Patient is calmly lying in bed without any agitated behavior. Speech: Patient's speech is fluent and nonpressured. Mood/Affect: Patient reports their mood is "okay", affect is congruent, euthymic, somewhat constricted in range. Suicidality/Homicidality: Patient vehemently denies any suicidal or homicidal ideation, intention, and/or plan. Perceptions: Patient denies any auditory or visual hallucinations. Though content/process: There is no evidence of any delusional thought content and thought process is linear and goal-directed. Memory and concentration: AOX3, grossly intact for the purposes of this session. Can spell "WORLD" backwards Judgment and insight: Fair IMPRESSIONS: Major depressive disorder Alcohol use disorder, binge type Cocaine use disorder Heroin use disorder PLAN: -At this time patient DOES NOT meet criteria for inpatient psychiatric admission. -May continue the patient's Prozac 20 mg by mouth daily at bedtime for depression/anxiety; No medication changes necessary at this time. -Psychiatry will sign off at this point, please contact with any questions. -Recommend social work consult for providing the patient with resources for outpatient counseling services for substance use. 08/03/20 13:33
[2020-08-03 13:43] VITALS: TEMP 98.3
[2020-08-03 14:55] VITALS: BP 132/59; PULSE 74
--- NOTE | 2020-08-04 14:13 | P.DS ---
Providers Date of admission: 08/01/20 13:04 Expected date of discharge: 08/03/20 Attending physician: Daniel Gross Consults: 08/03/20 11:05 Consult Physician Routine Consulting Provider: Psychiatry - [facility] Psychiatry Consult Reason/Comments: Overdose Do you want consulting provider notified?: Yes Primary care physician: Stated None Hospital Course: Final diagnosis Status post overdose with cocaine and heroin Change in mental status, acute metabolic encephalopathy secondary to drug overdose Left-sided aspiration pneumonia Elevated AST, ALT, acute hepatitis possibly drug-induced, alcohol induced Increased random blood sugar Increased creatinine with acute renal failure mild metabolic acidosis, present on admission history of cardiac catheterization History of anxiety, depression History of polysubstance abuse Discharge disposition Patient is being discharged in a stable condition with guarded prognosis to home. Patient will follow-up with Dr. Cooley in the outpatient setting upon discharge. Patient is to continue with oral antibiotics in the form of Ceftin 500 mg twice daily for the next 5 days to complete the course. She will continue with the prednisone taper as well. Patient also instructed to follow- up with cardiology Dr. Mckinney in the outpatient setting. Total time taken is greater than 35 minutes. Hospital course This is a 65-year-old female who was recently admitted with overdose with cocaine and heroin also found to have aspiration pneumonia on the left side and was being closely monitored. Patient was seen and evaluated by psychiatry. P atient was maintained on IV antibiotics and will continue with oral antibiotics in the form of Augmentin twice daily for the next 5 days to complete the course. Patient instructed to continue to avoid alcohol and drug use with the possibility of rehab in the outpatient setting. Currently no reports of chest pain, worsening shortness of breath, or palpitations. Patient is afebrile. No reports of nausea or vomiting and patient is tolerating diet. Patient will be discharged home today. Guarded prognosis. On exam vital signs are stable. Temp is 98.3F, pulse is 74, respirations are 18, blood pressure is 132/59, oxygen saturation is 94% on room air. Cardio S1, S2 are muffled. Respiratory system shows diminished breath sounds at the bases with no wheezing or rhonchi noted. Abdomen is soft and nontender. Nervous system shows no focal deficits. Please refer to medication reconciliation sheet for a list of medications. Patient Condition at Discharge: Stable Plan - Discharge Summary Discharge Rx Participant: No New Discharge Prescriptions: New LORazepam [Ativan] 1 mg PO BID 3 Days #6 tab Amoxic-Pot Clav 875-125Mg [Augmentin 875-125] 1 tab PO Q12HR 5 Days #10 tab Multivitamins, Thera [Multivitamin] 1 tab PO DAILY #30 tablet Pantoprazole [Protonix] 40 mg PO AC-BRKFST 30 Days #30 tablet. Thiamine [Vitamin B-1] 100 mg PO DAILY #30 tablet Continue FLUoxetine HCL [PROzac] 20 mg PO HS Discharge Medication List FLUoxetine HCL [PROzac] 20 mg PO HS 08/01/20 [History] Amoxic-Pot Clav 875-125Mg [Augmentin 875-125] 1 tab PO Q12HR 5 Days #10 tab 08/03/20 [Rx] LORazepam [Ativan] 1 mg PO BID 3 Days #6 tab 08/03/20 [Rx] Multivitamins, Thera [Multivitamin] 1 tab PO DAILY #30 tablet 08/03/20 [Rx] Pantoprazole [Protonix] 40 mg PO AC-BRKFST 30 Days #30 tablet. 08/03/20 [Rx] Thiamine [Vitamin B-1] 100 mg PO DAILY #30 tablet 08/03/20 [Rx] Follow up Appointment(s)/Referral(s): None,Stated [Primary Care Provider] - 1-2 days (Please follow up with primary doctor.) Activity/Diet/Wound Care/Special Instructions: Okay for discharge Activity Limited until follow-up Follow-up with primary care provider upon discharge Continue to avoid alcohol May continue with Ativan as needed and taper over the next 2 days and avoid alcohol intake Continue current diet Continue with antibiotics until finished Discharge/Stand Alone Forms: Who Do I Call?, AA Meetings, Community Resources, Outpatient Counseling Discharge Disposition: HOME SELF-CARE
== END 2020-08-03 17:08 | disposition home or self-care (01) ==
LOC: EC 11:03 → 3SCARD 13:04 → INTOOBSV 13:04 → 3SCARD 13:41 → UNDODISIN 08-03 17:08
PROVIDERS: ADMIT Hospitalist; ATTEND Hospitalist
DX: T40.1X1A Poisoning by heroin, accidental (unintentional), initial encounter (principal); T40.5X1A Poisoning by cocaine, accidental (unintentional), initial encounter; G92 Toxic encephalopathy; J69.0 Pneumonitis due to inhalation of food and vomit; B17.9 Acute viral hepatitis, unspecified; F14.10 Cocaine abuse, uncomplicated; F10.10 Alcohol abuse, uncomplicated; R73.09 Other abnormal glucose; N17.9 Acute kidney failure, unspecified; E87.2 Acidosis; F17.200 Nicotine dependence, unspecified, uncomplicated; F41.9 Anxiety disorder, unspecified; F32.9 Major depressive disorder, single episode, unspecified; M19.90 Unspecified osteoarthritis, unspecified site; Z79.899 Other long term (current) drug therapy; Z83.3 Family history of diabetes mellitus
CPT/HCPCS: 96366 ×3; 96367; 96372 ×2; 96361; 96365; 96375; 99285; 36415; 93005; 80053 ×3; 84484; 85025 ×3; 87040; 80306; 87070; 87205; 71046 ×2; G0378 ×3; J2543 ×3; J1644 ×2; J2310; J2405; J0456; J0696

== ENCOUNTER 2021-01-19 07:58 | Day surgery (SDC) | payer OTHER ==
[2020-12-24 17:42] VITALS: BMI 27.2
--- NOTE | 2021-01-19 06:45 | P.GSHP ---
History of Present Illness H&P Date: 01/19/21 CHIEF COMPLAINT: GERD and colon screen HISTORY OF PRESENT ILLNESS: The patient is a 30-year-old male who presents with GI bleed. Upper and lower endoscopy were offered for further evaluation and management. PAST MEDICAL HISTORY: Please see list. PAST SURGICAL HISTORY: Please see list. MEDICATIONS: Please see list. ALLERGIES: Please see list. SOCIAL HISTORY: Alcohol abuse history. FAMILY HISTORY: No reports of Crohn disease or ulcerative colitis. REVIEW OF ORGAN SYSTEMS: CONSTITUTIONAL: No reports of fevers or chills. PHYSICAL EXAM: VITAL SIGNS: Stable GENERAL: Well-developed pleasant in no acute distress. HEENT: No scleral icterus. Extraocular movements grossly intact. Moist buccal mucosa. NECK: Supple without lymphadenopathy. CHEST: Unlabored respirations. Equal bilateral excursions. CARDIOVASCULAR: Regular rate and rhythm. Distal 2+ pulses. ABDOMEN: Soft, nondistended. MUSCULOSKELETAL: No clubbing, cyanosis, or edema. ASSESSMENT: 1. GI bleed PLAN: 1. Recommend proceeding with an upper and lower endoscopy Past Medical History Past Medical History: GI Bleed, Myocardial Infarction ([place]), Pneumonia Additional Past Medical History / Comment(s): Asthma as child. Pt states he had a heart attack after overdose 06/2020, had a cardiac cath - nl. Pneumonia 07/2020. Lt hand pain occ d/t old injury. Last Myocardial Infarction Date:: 2019 History of Any Multi-Drug Resistant Organisms: None Reported Past Surgical History: Heart Catheterization, Orthopedic Surgery Additional Past Surgical History / Comment(s): ORIF lt forearm. Heart cath 07/05/20. Past Anesthesia/Blood Transfusion Reactions: No Reported Reaction Smoking Status: Current every day smoker - Past Family History Father Family Medical History: Diabetes Mellitus Mother History Unknown: Yes Family Medical History: No Reported History Medications and Allergies Home Medications Medication Instructions Recorded Confirmed Type FLUoxetine HCL [PROzac] 20 mg PO HS 08/01/20 01/14/21 History Acetaminophen [Tylenol Extra 500 - 1,000 mg PO DIRECTED PRN 12/24/20 01/14/21 History Strength] Cetirizine HCl/Pseudoephedrine 1 each PO DAILY PRN 12/24/20 01/14/21 History [Zyrtec-D Tablet] Cholecalciferol [Vitamin D3 (25 100 mcg PO DAILY 12/24/20 01/14/21 History Mcg = 1000 Iu)] Multivitamins, Thera [Multivitamin] 1 tab PO Q48H 12/24/20 01/14/21 History traZODone HCL [Desyrel] 50 mg PO HS PRN 12/24/20 01/14/21 History Allergies Allergy/AdvReac Type Severity Reaction Status Date / Time No Known Allergies Allergy Verified 01/14/21 10:39
[~2021-01-19 07:58] MED LIST: LACTATED RINGERS 1,000 ML IV SCH
[2021-01-19 08:49] VITALS: RESP 16; TEMP 97.8
[2021-01-19] MEDS ORDERED: PROPOFOL 10 MG/ML 20 ML VIAL IV ONE (09:07)
[2021-01-19] MEDS ORDERED: GLYCOPYRROLATE 0.2 MG/ML 2 ML VIAL ONE (09:07)
[2021-01-19] MEDS ORDERED: KETAMINE 10 MG/ML 20 ML VIAL ONE (09:07)
--- NOTE | 2021-01-19 09:20 | P.PCN ---
Date of Procedure: 01/19/21 Description of Procedure: PREOPERATIVE DIAGNOSIS: History of GI bleed History of esophageal varices POSTOPERATIVE DIAGNOSIS: Gastritis OPERATION: Esophagogastroduodenoscopy with biopsies along antrum. SURGEON: Gregoria Shah MD ANESTHESIA: MAC. INDICATIONS: The patient is a 30-year-old male who presents with a history of gastritis. Benefits and risks of the procedure were described. Informed consent was obtained. DESCRIPTION: The patient was brought into the endoscopy suite and laid in the left lateral decubitus position. An Olympus gastroscope was passed along the posterior oropharynx down to the distal esophagus where the squamocolumnar junction was encountered at 47 cm from the incisors. The stomach was entered and no bile reflux was found. Additional findings are listed below. Biopsies with cold forceps were obtained of the antrum. The first through third portion of the duodenum was examined and unremarkable. Retroflexion of the scope confirmed Hill grade 1 lower esophageal valve. The squamocolumnar junction demonstrated no LA grade A erosive esophagitis. The stomach was desufflated. The patient tolerated the procedure well. FINDINGS: Squamocolumnar junction 47 cm from the incisors. Diaphragmatic hiatus at 47 cm. Hill grade 1 lower esophageal valve. No LA grade A erosive esophagitis. No esophageal varices No active duodenitis. Chronic gastritis RECOMMENDATIONS: Upper endoscopy as needed.
--- NOTE | 2021-01-19 09:36 | P.PCN ---
Date of Procedure: 01/19/21 Description of Procedure: PREOPERATIVE DIAGNOSIS: History of GI bleed POSTOPERATIVE DIAGNOSIS: Tubular adenoma, sigmoid colon Internal hemorrhoids, grade 2 OPERATION: Colonoscopy to the ileocecal valve and appendiceal orifice, cecum Colonoscopy with cold forceps biopsy SURGEON: Gregoria Shah MD. ANESTHESIA: MAC. INDICATIONS: The patient is an 30-year-old male who presented with history of gastrointestinal bleeding. Benefits and risks were described and informed consent was obtained. DESCRIPTION OF PROCEDURE: The patient had undergone a MiraLAX prep. The patient had been brought into the operating room and laid in the left lateral decubitus position. After adequate intravenous sedation, the rectum was examined with 2% lidocaine jelly. The prostate was unremarkable. External hemorrhoids were encountered. The rectal tone was within normal limits. No lesions were palpated in the rectal vault. An Olympus colonoscope was advanced until the cecum, ileocecal valve and appendiceal orifice were clearly viewed. The prep was fair. No sigmoid diverticulosis was encountered. Colonic polyps were found and removed. No evidence of focal colitis was found. Retroflexion of the scope demonstrated grade 2 internal hemorrhoids without active bleeding or inflammation. The colon was desufflated. The patient had tolerated the procedure well. Withdrawal time was over 6 minutes. FINDINGS: Aronchick preparation quality scale 2 (1-5) Internal hemorrhoids, grade 2. External hemorrhoids, grade 2. No arteriovenous malformations. No sigmoid diverticulosis Removal of 1 polyp: - Cold forceps biopsy at 20 cm from the anal verge, 5 mm polyp, sigmoid No focal colitis. RECOMMENDATIONS: Repeat colonoscopy 5 years, 2025 Plan - Discharge Summary Discharge Rx Participant: No New Discharge Prescriptions: Continue FLUoxetine HCL [PROzac] 20 mg PO HS Cholecalciferol [Vitamin D3 (25 Mcg = 1000 Iu)] 100 mcg PO DAILY Multivitamins, Thera [Multivitamin (formulary)] 1 tab PO Q48H traZODone HCL [Desyrel] 50 mg PO HS PRN PRN Reason: Insomnia Cetirizine HCl/Pseudoephedrine [Zyrtec-D Tablet] 1 each PO DAILY PRN PRN Reason: allergies Acetaminophen [Tylenol Extra Strength] 500 - 1,000 mg PO DIRECTED PRN PRN Reason: Pain Discharge Medication List FLUoxetine HCL [PROzac] 20 mg PO HS 08/01/20 [History] Acetaminophen [Tylenol Extra Strength] 500 - 1,000 mg PO DIRECTED PRN 0 12/24/20 [History] Cetirizine HCl/Pseudoephedrine [Zyrtec-D Tablet] 1 each PO DAILY PRN 12/24/20 [History] Cholecalciferol [Vitamin D3 (25 Mcg = 1000 Iu)] 100 mcg PO DAILY 12/24/20 [History] Multivitamins, Thera [Multivitamin (formulary)] 1 tab PO Q48H 12/24/20 [History] traZODone HCL [Desyrel] 50 mg PO HS PRN 12/24/20 [History] Follow up Appointment(s)/Referral(s): Gregoria Shah MD [STAFF PHYSICIAN] - 02/01/21 Patient Instructions/Handouts: Colorectal Polyps (GEN), Gastritis (ED) Activity/Diet/Wound Care/Special Instructions: Repeat colonoscopy in 5 years, 2025 Discharge Disposition: HOME SELF-CARE
[2021-01-19 09:53] VITALS: BP 119/62; PULSE 55
== END 2021-01-19 10:10 | disposition home or self-care (01) ==
LOC: ORWHC2ENDO 07:58
PROVIDERS: ATTEND Surgery Plastic and Reconstructive Surgery
DX: K29.50 Unspecified chronic gastritis without bleeding (principal); D12.5 Benign neoplasm of sigmoid colon; K64.8 Other hemorrhoids; K64.4 Residual hemorrhoidal skin tags; Z79.899 Other long term (current) drug therapy; I25.2 Old myocardial infarction; I25.10 Atherosclerotic heart disease of native coronary artery without angina pectoris; F17.210 Nicotine dependence, cigarettes, uncomplicated; F41.9 Anxiety disorder, unspecified; F32.9 Major depressive disorder, single episode, unspecified
CPT/HCPCS: 88305; 45380; 43239; J2704

== ENCOUNTER 2023-01-06 14:10 | Inpatient (IN) | payer OTHER ==
--- NOTE | 2023-01-06 15:37 | ED ---
General Adult HPI - General Chief complaint: Psychiatric Symptoms Stated complaint: Withdraw ETOH Time Seen by Provider: 01/06/23 14:58 Source: patient, RN notes reviewed Mode of arrival: ambulatory Limitations: no limitations - History of Present Illness Initial comments: 32-year-old male with no significant past medical history presents to the emergency department the chief complaint of depression. She reports that he has had ongoing depression for years. He reports worsening depressive thoughts over the last month. He reports that he attempted to commit suicide by hanging approximately 1 month ago. He was recently discharged from intermediate yesterday. He reports that he takes 20 mg of Prozac daily. He localizes that he believes he n eeds medication adjustment. He denies any active homicidal or suicidal ideation. He denies having an active plan to commit suicide today. Denies visual or auditory hallucinations. Denies illicit drug or alcohol use. - Related Data Home Medications Medication Instructions Recorded Confirmed FLUoxetine HCL [PROzac] 20 mg PO HS 08/01/20 01/06/23 EPINEPHrine (Auto Inject) [Epipen] 0.3 mg IM ONCE PRN 01/06/23 01/06/23 Allergies Allergy/AdvReac Type Severity Reaction Status Date / Time No Known Allergies Allergy Verified 01/06/23 16:32 Review of Systems ROS Statement: Those systems with pertinent positive or pertinent negative responses have been documented in the HPI. ROS Other: All systems not noted in ROS Statement are negative. Past Medical History Past Medical History: Asthma, GI Bleed, Myocardial Infarction ([place]), Pneumonia Additional Past Medical History / Comment(s): Asthma as child. Pt states he had a heart attack after overdose 06/2020, had a cardiac cath - nl. Pneumonia 07/2020. Lt hand pain occ d/t old injury. Last Myocardial Infarction Date:: 2019 History of Any Multi-Drug Resistant Organisms: None Reported Past Surgical History: Heart Catheterization, Orthopedic Surgery Additional Past Surgical History / Comment(s): ORIF lt forearm. Heart cath 07/05/20. Past Anesthesia/Blood Transfusion Reactions: No Reported Reaction Past Psychological History: Anxiety, Depression Smoking Status: Current every day smoker Past Alcohol Use History: Occasional Past Drug Use History: Cocaine - Past Family History Father Family Medical History: Diabetes Mellitus Mother History Unknown: Yes Family Medical History: No Reported History General Exam - General Exam Comments Initial Comments: General: Alert, in no acute distress, flat affect Head: atraumatic normocephalic. Eyes PERRL, EOMI intact, mucous membranes moist Respiratory: Lungs clear to auscultation bilaterally Cardiovascular: Heart rate regular rate and rhythm Abdominal: Soft without guarding or rebound Extremities: Normal inspection with full range of motion and normal capillary refill Neuroogic: alert and oriented 3, CN II-XII intact, able to ambulate with steady gait Skin: warm dry and intact with normal color Limitations: no limitations Course Vital Signs 01/06/23 14:13 Temperature 98.3 F Pulse Rate 61 Respiratory 20 Rate Blood Pressure 125/73 O2 Sat by Pulse 99 Oximetry - Reevaluation(s) Reevaluation #1: 01/06/23 19:21 Case discussed with EPS nurse who believes the patient meets inpatient criteria. Medical Decision Making - Medical Decision Making Was pt. sent in by a medical professional or institution ([facility], [employer], urgent care, hospital, or fpc...) When possible be specific @ -[No] Did you speak to anyone other than the patient for history (EMS, parent, family, police, friend...)? What history was obtained from this source @ -Mother Did you review nursing and triage notes (agree or disagree)? Why? @ -[I reviewed and agree with nursing and triage notes] Were old charts reviewed (outside hosp., previous admission, EMS record, old EKG, old radiological studies, urgent care reports/EKG's, fpc records)? Report findings @ -[No old charts were reviewed] Differential Diagnosis (chest pain, altered mental status, abdominal pain women, abdominal pain men, vaginal bleeding, weakness, fever, dyspnea, syncope, headache, dizziness, GI bleed, back pain, seizure, CVA, palpatations, mental health, musculoskeletal)? @ -[not applicable] EKG interpreted by me (3pts min.). @ -[As above] X-rays interpreted by me (1pt min.). @ -[None done] CT interpreted by me (1pt min.). @ -[None done] U/S interpreted by me (1pt. min.). @ -[None done] What testing was considered but not performed or refused? (CT, X-rays, U/S, labs)? Why? @ -[None] What meds were considered but not given or refused? Why? @ -[None] Did you discuss the management of the patient with other professionals (professionals i.e. ., PA, [employer] TRA[employer]ER, lab, RT, psych nurse, sexual assault social worker, speed belt sander, teacher, nuclear security officer, supportive employment case manager)? Give summary @ -[No] Was smoking cessation discussed for >3mins.? @ -[No] Was critical care preformed (if so, how long)? @ -[No] Were there social determinants of health that impacted care today? How? (Homelessness, low income, unemployed, alcoholism, drug addiction, transportation, low edu. Level, literacy, decrease access to med. care, intermediate, rehab)? @ -[No] Was there de-escalation of care discussed even if they declined (Discuss DNR or withdrawal of care, Hospice)? DNR status @ -[No] What co-morbidities impacted this encounter? (DM, HTN, Smoking, COPD, CAD, Cancer, CVA, ARF, Chemo, Hep., AIDS, mental health diagnosis, sleep apnea, morbid obesity)? @ -[None] Was patient admitted / discharged? Hospital course, mention meds given and route, prescriptions, significant lab abnormalities, going to OR and other pertinent info. @ -Admission. This is a 32-year-old male who presents the emergency department with depression. Patient had a thorough history and physical exam performed on the ED. Heart rate regular rate and rhythm, lungs clear to auscultation bilaterally, abdomen soft and nontender. Patient with a flat affect however answers questions appropriately. Patient was evaluated by EPS RN who believes patient needs inpatient treatment criteria. Undiagnosed new problem with uncertain prognosis? @ -[No] Drug Therapy requiring intensive monitoring for toxicity (Heparin, Nitro, Insulin, Cardizem)? @ -[No] Were any procedures done? @ -[No] Diagnosis/symptom? @ -Depression - Hx of Suicide Attempts Acute, or Chronic, or Acute on Chronic? @ -Acute Uncomplicated (without systemic symptoms) or Complicated (systemic symptoms)? @ -Uncomplicated Side effects of treatment? @ -[No] Exacerbation, Progression, or Severe Exacerbation? @ -[No] Poses a threat to life or bodily function? How? (Chest pain, [place], [place], pneumonia, PE, COPD, DKA, ARF, appy, cholecystitis, CVA, Diverticulitis, Homicidal, Suicidal, threat to staff... and all critical care pts) @ High likelihood - Lab Data Lab Results 01/06/23 01/06/23 Range/Units 16:20 16:20 Urine Opiates Screen Not Detected (NotDetected) Ur Oxycodone Screen Not Detected (NotDetected) Urine Methadone Screen Not Detected (NotDetected) Ur Propoxyphene Screen Not Detected (NotDetected) Ur Barbiturates Screen Not Detected (NotDetected) U Tricyclic Antidepress Not Detected (NotDetected) Ur Phencyclidine Scrn Not Detected (NotDetected) Ur Amphetamines Screen Not Detected (NotDetected) U Methamphetamines Scrn Not Detected (NotDetected) U Benzodiazepines Scrn Detected H (NotDetected) Urine Cocaine Screen Not Detected (NotDetected) U Marijuana (THC) Screen Not Detected (NotDetected) Coronavirus (PCR) Not Detected (Not Detectd) Disposition Clinical Impression: Depression Disposition: ADMITTED IP TO THIS HOSP Condition: Fair Time of Disposition: 20:19
[2023-01-06 18:36] LABS: Amphetamine Screen,Urine Not Detected (NotDetected); Barbiturate Screen,Urine Not Detected (NotDetected); Benzodiazepines Screen,Urine Detected (NotDetected); Cocaine Screen,Urine Not Detected (NotDetected); Methadone Screen, Urine Not Detected (NotDetected); Opiate Screen,Urine Not Detected (NotDetected); Oxycodone Screen, Urine Not Detected (NotDetected); Phencyclidine Screen,Urine Not Detected (NotDetected); Tricyclic Antidepressant,Urine Not Detected (NotDetected); Urn Cannabinoid Scrn Not Detected (NotDetected)
[2023-01-06] MEDS ORDERED: MAG HYDROX/AL HYDROX/SIMETH 30 ML CUP PO PRN (19:43)
[2023-01-06] MEDS ORDERED: ACETAMINOPHEN TAB 325 MG TAB PO PRN (19:43)
[2023-01-06] MEDS ORDERED: MAGNESIUM HYDROXIDE 2,400 MG/10 ML CUP PO PRN (19:43)
[2023-01-06] MEDS ORDERED: LORazepam 2 MG/ML INJ IM PRN (19:46)
[2023-01-06] MEDS ORDERED: LORazepam 1 MG TAB PO PRN (19:46)
[2023-01-06] MEDS ORDERED: NON FORMULARY DRUG (Epinephrine (Auto Inject) 0.3 MG/0.3 ML Each) IM PRN (19:46)
[2023-01-06] MEDS ORDERED: haloperidoL 5 MG TAB PO PRN (19:47)
[2023-01-06] MEDS ORDERED: HALOPERIDOL LACTATE 5 MG/ML 1 ML VIAL IM PRN (19:47)
[2023-01-06] MEDS ORDERED: FLUoxetine HCL 20 MG CAP PO SCH (21:00)
[2023-01-07 09:41] LABS: Basophils % (A) 0 %; Eosinophils # (A) 0.1 k/uL (0-0.7); Eosinophils % (A) 3 %; HCT 44.4 % (39.0-53.0); HGB 14.6 gm/dL (13.0-17.5); Lymphocytes # (A) 1.1 k/uL (1.0-4.8); Lymphocytes % (A) 29 %; MCH 31.5 pg (25.0-35.0); MCHC 32.9 g/dL (31.0-37.0); MCV 95.9 fL (80.0-100.0); Mean Platelet Volume 8.5; Monocytes # (A) 0.2 k/uL (0-1.0); Monocytes % (A) 6 %; Neutrophils # (A) 2.2 k/uL (1.3-7.7); Neutrophils % (A) 59 %; Platelet Count 201 k/uL (150-450); RBC 4.63 m/uL (4.30-5.90); RDW 12.5 % (11.5-15.5); WBC 3.7 k/uL (3.8-10.6)
[2023-01-07 09:51] LABS: ALT 22 U/L (4-49); AST 24 U/L (17-59); African American GFR (CKD) >90 (>60 ml/min/1.73 sqM); Albumin 4.5 g/dL (3.5-5.0); Alkaline Phosphatase 61 U/L (38-126); Anion Gap 8 mmol/L; Blood Urea Nitrogen 11 mg/dL (9-20); Carbon Dioxide 28 mmol/L (22-30); Chloride 103 mmol/L (98-107); Glucose 105 mg/dL (74-99); Non-African American GFR(CKD) >90 (>60 ml/min/1.73 sqM); Potassium 4.3 mmol/L (3.5-5.1); Sodium 139 mmol/L (137-145); Total Bilirubin 0.6 mg/dL (0.2-1.3); Total Protein 7.3 g/dL (6.3-8.2)
[2023-01-07] MEDS: NICOTINE 14MG/24HR PATCH TRANSDERM SCH ×2 (10:49→18:41)
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
[2023-01-07] MEDS: OXcarbazepine 300 MG TAB PO SCH (20:13)
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
[2023-01-08] MEDS: NICOTINE 14MG/24HR PATCH TRANSDERM SCH (06:25)
[2023-01-08] MEDS: buPROPion XL 150 MG TAB.ER.24H PO SCH (06:25)
[2023-01-08] MEDS: OXcarbazepine 300 MG TAB PO SCH ×2 (06:25→20:40)
[2023-01-08 08:57] LABS: Chol/HDL Ratio 2.81 Ratio; LDL Cholesterol,Calculated 67.3 mg/dL (0.0-131.0); VLDL Calculation 15.82 mg/dL (5.00-40.00)
--- NOTE | 2023-01-08 11:22 | P.PN ---
Progress Note - Text Progress Note Date: 01/08/23 Interval History: Patient was seen wandering the hallways and was directable and agreeable to marj orourke with bond underwriter in the office. patient spoke briefly of a light in the hospital. He states that living alone has been difficult for him. He claims that he is also dealing with significant legal issues coming up and may possibly facing a felony charge. He claims that he has been abusing alcohol lately and recently relapsed. He states that he is not having any withdrawal symptoms at this time, vitals appear okay. He did create he did claim that he does have alcohol cravings at times and was agreeable to try naltrexone. States that he is still feeling depressed and did describe a history of labile mood. He claims that the medications have been helping and wants to remain on the same dose. States that his sleeping fairly a nighttime, has a fair appetite, he is going to some groups. We spoke about rehab and he is declining at this time. At this time patient denies any suicidal or homical ideations, intent or plan. Patient denies any auditory, visual hallucinations and denies any paranoia or delusions. Patient denies any side effects from the medications and has been compliant with meds. Mental Status Exam: General Appearance: Patient appears to be tall, wearing glasses, stated age is alert, directable, and superficially cooperative. Behavior: Patient is calmly seated without any agitated behavior. superficial Speech: Patient's speech is fluent and nonpressured. Mood/Affect: Mood is depressed but is improving mildly, affect is congruent and constricted, improving mildly Suicidality/Homicidality: Patient denies having any suicidal or homicidal ideation intent or plan. Perceptions: Patient denies any visual hallucinations and denies any auditory hallucinations Though content/process: There is no evidence of any delusional thought content and thought process is linear and goal-directed. focused on his sx and legal issues. Memory and concentration: AOX3, grossly intact for the purposes of this session Judgment and insight: poor, Improving mildly Assessment: Bipolar disorder, current episode depressed Alcohol abuse Nicotine dependence legal problems Plan: -Patient continues to meet criteria for inpatient psychiatric admission for symptom stabilization and safety. Patient has signed adult voluntary form and medication consent and was placed in patient's chart. -Medications: start trileptal 300 mg bid for mood stabilization, wellbutrin xl 150 mg daily for mood, start naltrexone 50 mg daily for etoh cravings. -When necessary Ativan and Haldol for agitation/aggression. -NRT - not needed as pt does not smoke -SW on board for discharge planning. Encouraged the patient to participate in milieu. patient is declining rehab at this time. likely discharge in 1-[facility].
[2023-01-08] MEDS: NALTREXONE HCL 50 MG TAB PO SCH (12:36)
[2023-01-09] MEDS: buPROPion XL 150 MG TAB.ER.24H PO SCH (07:48)
[2023-01-09] MEDS: OXcarbazepine 300 MG TAB PO SCH ×2 (07:48→20:32)
[2023-01-09] MEDS: NALTREXONE HCL 50 MG TAB PO SCH (07:48)
[2023-01-09] MEDS: NICOTINE 14MG/24HR PATCH TRANSDERM SCH (07:49)
--- NOTE | 2023-01-09 10:36 | P.PN ---
Progress Note - Text Progress Note Date: 01/09/23 Interval History: Patient was seen wandering the hallways and was directable and agreeable to marj orourke with underwriter in the office. patient spoke today about feeling a bit better in terms of his mood and also anxiety. He states that the medications of been helping him so far and wants to continue to take them. He continues to be fairly superficial about the legal issues that he has and currently facing. He states that he has been trying to go to some groups and participate. States that she is able to sleep fairly last night without any issues. He has some questions about his medications which were answered. he sttaes that he has a fair appetite, he is going to some groups. At this time patient denies any suicidal or homical ideations, intent or plan. Patient denies any auditory, visual hallucinations and denies any paranoia or delusions. Patient denies any side effects from the medications and has been compliant with meds. Mental Status Exam: General Appearance: Patient appears to be tall, wearing glasses, stated age is alert, directable, and superficially cooperative. Behavior: Patient is calmly seated without any agitated behavior. superficial, improving. Speech: Patient's speech is fluent and nonpressured. Mood/Affect: Mood is depressed but is improving mildly, affect is congruent and constricted, improving mildly Suicidality/Homicidality: Patient denies having any suicidal or homicidal ideation intent or plan. Perceptions: Patient denies any visual hallucinations and denies any auditory hallucinations Though content/process: There is no evidence of any delusional thought content and thought process is linear and goal-directed. Memory and concentration: AOX3, grossly intact for the purposes of this session Judgment and insight: Improving mildly Assessment: Bipolar disorder, current episode depressed Alcohol abuse Nicotine dependence legal problems Plan: -Patient continues to meet criteria for inpatient psychiatric admission for symptom stabilization and safety. Patient has signed adult voluntary form and medication consent and was placed in patient's chart. -Medications: continue trileptal 300 mg bid for mood stabilization, wellbutrin xl 150 mg daily for mood, naltrexone 50 mg daily for etoh cravings. -When necessary Ativan and Haldol for agitation/aggression -NRT - not needed as pt does not smoke -SW on board for discharge planning. Encouraged the patient to participate in milieu. patient is declining rehab at this time. [facility].
[2023-01-09] MEDS: NICOTINE GUM (POLACRILEX) 2 MG GUM BUCCAL PRN ×2 (13:31→20:52)
[2023-01-10 06:37] VITALS: BP 120/57; PULSE 67; RESP 14; TEMP 98.1
[2023-01-10] MEDS: NALTREXONE HCL 50 MG TAB PO SCH (08:39)
[2023-01-10] MEDS: buPROPion XL 150 MG TAB.ER.24H PO SCH (08:39)
[2023-01-10] MEDS: OXcarbazepine 300 MG TAB PO SCH (08:39)
[2023-01-10] MEDS: NICOTINE GUM (POLACRILEX) 2 MG GUM BUCCAL PRN (08:41)
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
== END 2023-01-10 14:00 | disposition home or self-care (01) | DRG 753 ==
LOC: EC 14:10 → 3MHU 19:36
PROVIDERS: ADMIT Psychiatry & Neurology Psychiatry; ATTEND Psychiatry & Neurology Psychiatry
PROC: HZ2ZZZZ Detoxification Services for Substance Abuse Treatment (ICD-10-PCS; principal; 2023-01-07)
DX: F31.30 Bipolar disorder, current episode depressed, mild or moderate severity, unspecified (principal); F41.9 Anxiety disorder, unspecified; F17.210 Nicotine dependence, cigarettes, uncomplicated; R45.851 Suicidal ideations; F10.20 Alcohol dependence, uncomplicated; I25.2 Old myocardial infarction; Z87.19 Personal history of other diseases of the digestive system; J45.909 Unspecified asthma, uncomplicated; Z87.01 Personal history of pneumonia (recurrent); Z65.3 Problems related to other legal circumstances; Z79.899 Other long term (current) drug therapy; Z91.51 Personal history of suicidal behavior; Z20.822 Contact with and (suspected) exposure to COVID-19; Z71.41 Alcohol abuse counseling and surveillance of alcoholic
CPT/HCPCS: 80053; 80061; 80306; 83036; 84443; 85025; 87635; 99285

== ENCOUNTER 2023-02-22 13:05 | Inpatient (IN) | payer MEDICAID, OTHER ==
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
[2023-02-22 16:38] LABS: Amphetamine Screen,Urine Not Detected (NotDetected); Barbiturate Screen,Urine Not Detected (NotDetected); Benzodiazepines Screen,Urine Not Detected (NotDetected); Cocaine Screen,Urine Not Detected (NotDetected); Methadone Screen, Urine Not Detected (NotDetected); Opiate Screen,Urine Not Detected (NotDetected); Oxycodone Screen, Urine Not Detected (NotDetected); Phencyclidine Screen,Urine Not Detected (NotDetected); Tricyclic Antidepressant,Urine Not Detected (NotDetected); Urn Cannabinoid Scrn Not Detected (NotDetected)
[2023-02-22] MEDS ORDERED: OLANZapine 10 MG VIAL IM PRN (18:00)
[2023-02-22] MEDS ORDERED: MAG HYDROX/AL HYDROX/SIMETH 30 ML CUP PO PRN (18:00)
[2023-02-22] MEDS ORDERED: ACETAMINOPHEN TAB 325 MG TAB PO PRN (18:00)
[2023-02-22] MEDS ORDERED: hydrOXYzine HCL 50 MG/ML 1 ML VIAL IM PRN (18:00)
[2023-02-22] MEDS ORDERED: hydrOXYzine pamoate 25 MG CAP PO PRN (18:03)
[2023-02-22] MEDS ORDERED: OLANZapine 5 MG TAB PO PRN (18:04)
[2023-02-22] MEDS: OXcarbazepine 300 MG TAB PO SCH (20:55)
[2023-02-23] MEDS: OXcarbazepine 300 MG TAB PO SCH (08:41)
[2023-02-23] MEDS: NALTREXONE HCL 50 MG TAB PO SCH (08:41)
[2023-02-23] MEDS ORDERED: buPROPion XL 150 MG TAB.ER.24H PO SCH (09:00)
[2023-02-23 09:32] LABS: Basophils % (A) 0 %; Eosinophils # (A) 0.1 k/uL (0-0.7); Eosinophils % (A) 2 %; HCT 43.8 % (39.0-53.0); HGB 14.7 gm/dL (13.0-17.5); Lymphocytes # (A) 1.2 k/uL (1.0-4.8); Lymphocytes % (A) 27 %; MCH 32.3 pg (25.0-35.0); MCHC 33.6 g/dL (31.0-37.0); Mean Platelet Volume 8.3; Monocytes # (A) 0.2 k/uL (0-1.0); Monocytes % (A) 6 %; Neutrophils # (A) 2.7 k/uL (1.3-7.7); Neutrophils % (A) 63 %; Platelet Count 174 k/uL (150-450); RBC 4.56 m/uL (4.30-5.90); RDW 12.3 % (11.5-15.5); WBC 4.3 k/uL (3.8-10.6)
[2023-02-23 09:52] LABS: ALT 25 U/L (4-49); AST 26 U/L (17-59); African American GFR (CKD) >90 (>60 ml/min/1.73 sqM); Albumin 4.7 g/dL (3.5-5.0); Alkaline Phosphatase 63 U/L (38-126); Anion Gap 8 mmol/L; Blood Urea Nitrogen 12 mg/dL (9-20); Calcium 9.2 mg/dL (8.4-10.2); Carbon Dioxide 31 mmol/L (22-30); Chloride 100 mmol/L (98-107); Glucose 124 mg/dL (74-99); Non-African American GFR(CKD) >90 (>60 ml/min/1.73 sqM); Potassium 4.5 mmol/L (3.5-5.1); Sodium 139 mmol/L (137-145); Total Bilirubin 0.5 mg/dL (0.2-1.3); Total Protein 7.5 g/dL (6.3-8.2)
--- NOTE | 2023-02-23 11:39 | P.HP ---
Psychiatric H&P - . H&P Date: 02/23/23 History & Physical: Allergies Allergy/AdvReac Type Severity Reaction Status Date / Time No Known Allergies Allergy Verified 02/22/23 14:31 Vital Signs Temp 98.3 F 02/23/23 05:54 Pulse 74 02/23/23 05:54 Resp 18 02/23/23 05:54 BP 120/63 02/23/23 05:54 Pulse Ox 98 02/23/23 05:54 FiO2 Intake & Output 02/22/23 02/23/23 02/23/23 18:59 06:59 18:59 Weight 104.326 kg 104.326 kg Laboratory Last Values WBC 4.3 k/uL (3.8-10.6) 02/23/23 08:35 RBC 4.56 m/uL (4.30-5.90) 02/23/23 08:35 Hgb 14.7 gm/dL (13.0-17.5) 02/23/23 08:35 Hct 43.8 % (39.0-53.0) 02/23/23 08:35 MCV 96.0 fL (80.0-100.0) 02/23/23 08:35 MCH 32.3 pg (25.0-35.0) 02/23/23 08:35 MCHC 33.6 g/dL (31.0-37.0) 02/23/23 08:35 RDW 12.3 % (11.5-15.5) 02/23/23 08:35 Plt Count 174 k/uL (150-450) 02/23/23 08:35 MPV 8.3 02/23/23 08:35 Neutrophils % 63 % 02/23/23 08:35 Lymphocytes % 27 % 02/23/23 08:35 Monocytes % 6 % 02/23/23 08:35 Eosinophils % 2 % 02/23/23 08:35 Basophils % 0 % 02/23/23 08:35 Neutrophils # 2.7 k/uL (1.3-7.7) 02/23/23 08:35 Lymphocytes # 1.2 k/uL (1.0-4.8) 02/23/23 08:35 Monocytes # 0.2 k/uL (0-1.0) 02/23/23 08:35 Eosinophils # 0.1 k/uL (0-0.7) 02/23/23 08:35 Basophils # 0.0 k/uL (0-0.2) 02/23/23 08:35 Sodium 139 mmol/L (137-145) 02/23/23 08:35 Potassium 4.5 mmol/L (3.5-5.1) 02/23/23 08:35 Chloride 100 mmol/L (98-107) 02/23/23 08:35 Carbon Dioxide 31 mmol/L (22-30) H 02/23/23 08:35 Anion Gap 8 mmol/L 02/23/23 08:35 BUN 12 mg/dL (9-20) 02/23/23 08:35 Creatinine 0.84 mg/dL (0.66-1.25) 02/23/23 08:35 Est GFR (CKD-EPI)AfAm >90 (>60 ml/min/1.73 sqM) 02/23/23 08:35 Est GFR (CKD-EPI)NonAf >90 (>60 ml/min/1.73 sqM) 02/23/23 08:35 Glucose 124 mg/dL (74-99) H 02/23/23 08:35 Calcium 9.2 mg/dL (8.4-10.2) 02/23/23 08:35 Total Bilirubin 0.5 mg/dL (0.2-1.3) 02/23/23 08:35 AST 26 U/L (17-59) 02/23/23 08:35 ALT 25 U/L (4-49) 02/23/23 08:35 Alkaline Phosphatase 63 U/L (38-126) 02/23/23 08:35 Total Protein 7.5 g/dL (6.3-8.2) 02/23/23 08:35 Albumin 4.7 g/dL (3.5-5.0) 02/23/23 08:35 TSH 2.300 mIU/L (0.465-4.680) 02/23/23 08:35 Urine Opiates Screen Not Detected (NotDetected) 02/22/23 13:34 Ur Oxycodone Screen Not Detected (NotDetected) 02/22/23 13:34 Urine Methadone Screen Not Detected (NotDetected) 02/22/23 13:34 Ur Propoxyphene Screen Not Detected (NotDetected) 02/22/23 13:34 Ur Barbiturates Screen Not Detected (NotDetected) 02/22/23 13:34 U Tricyclic Antidepress Not Detected (NotDetected) 02/22/23 13:34 Ur Phencyclidine Scrn Not Detected (NotDetected) 02/22/23 13:34 Ur Amphetamines Screen Not Detected (NotDetected) 02/22/23 13:34 U Methamphetamines Scrn Not Detected (NotDetected) 02/22/23 13:34 U Benzodiazepines Scrn Not Detected (NotDetected) 02/22/23 13:34 Urine Cocaine Screen Not Detected (NotDetected) 02/22/23 13:34 U Marijuana (THC) Screen Not Detected (NotDetected) 02/22/23 13:34 Coronavirus (PCR) Not Detected (Not Detectd) 02/22/23 16:15 02/23/23 11:06 IDENTIFYING DATA: Patient is a 32-year-old male currently lives with his mother, works doing construction, single, no kids. HPI: Patient presented to the hospital yesterday and was complaining of increase in depression and also stressors. Patient was also complaining of having a short temper in the ER and does not believe that his medications are helping him at this time. Patient was also endorsing suicidal thoughts however no plan or intent. Patient was last psychiatrically admitted to the mental health unit in December 2022 who has a history of bipolar disorder. The patient was agreeable to be seen today by consumer loan underwriter in the office. Patient had poor eye contact, states that he's been feeling depressed lately. He also was mentioning fearing "irritable and snapping more on my family". He claims that he knew something was wrong because you would be "sitting there doing something and then it just start crying". He states that he does not know what's going on and claims that his medications feel like they're not helping him. He states that he has been taking them regularly. He was not able to get into his outpatient psychiatrist clinic until several months down the line. States that he is also finding work to be fairly unstable with his shifts and states that also financially he is having difficulties. Claims that he is also currently dealing with a third DUI and having to blow into a breathalyzer several times a day and currently anxiously awaiting his upcoming court hearing date. Patient denies any current suicidal or homicidal ideations intent or plan. At this time patient denies any auditory or visual hallucinations. Patient denies any flight of ideas racing thoughts and increased in goal directed behavior. Patient admits to using cigarettes only. States that he used to drink alcohol heavily however has not drank since this past December. Urine drug screen was negative. PAST PSYCHIATRIC HISTORY: Patient states that he has a history of bipolar disorder and alcohol use. Patient is currently on Tegretol, naltrexone, Wellbutrin. Patient was last psychiatrically hospitalized in December 2022 on the mental health unit. Patient is currently on the wait list at [facility] for psychiatric outpatient follow-up. States that about 4 months ago he attempted to hang himself. Past Medical History: Asthma, GI Bleed, Myocardial Infarction ([place]), Pneumonia Additional Past Medical History / Comment(s): Asthma as child. Pt states he had a heart attack after overdose 06/2020, had a cardiac cath - nl. Pneumonia 07/2020. Lt hand pain occ d/t old injury. Last Myocardial Infarction Date:: 2019 History of Any Multi-Drug Resistant Organisms: None Reported Past Surgical History: Heart Catheterization, Orthopedic Surgery Additional Past Surgical History / Comment(s): ORIF lt forearm. Heart cath 07/05/20. Past Anesthesia/Blood Transfusion Reactions: No Reported Reaction Past Psychological History: Anxiety, Bipolar, Depression Smoking Status: Current some day smoker Past Alcohol Use History: Abuse, Daily Past Drug Use History: Cocaine, Heroin ALLERGIES: as per EMR CHEMICAL DEPENDENCY HISTORY: as per HPI FAMILY PSYCHIATRIC/SUBSTANCE USE HISTORY: denies SOCIAL HISTORY: Patient was born and raised in [place] and then moved to [place]. 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 He states that he is single, has located has no kids. He has never been in prison however and recently got his third DUI. MENTAL STATUS EXAM: General Appearance: Patient appears to be tall, fairly groomed, stated age is alert, directable, and attempts to cooperate. Patient appears to have poor hygiene and grooming. Behavior: Patient is seated without any agitated behavior. Poor eye contact. Speech: Patient's speech is fluent and nonpressured. Monotone Mood/Affect: Patient reports their mood is depressed, affect is congruent and constricted. Suicidality/Homicidality: Patient denies having any homicidal ideation intent or plan. Denies any suicidal ideations intent or plan Perceptions: Patient denies any visual hallucinations and denies any auditory hallucinations Though content/process: There is no evidence of any delusional thought content and thought process is linear and goal-directed. [place] Memory and concentration: AOX3, grossly intact for the purposes of this session. Can spell "WORLD" backwards Judgment and insight: poor STRENGTHS/WEAKNESSES: strength is that patient is resilient. Weakness is that patient has poor judgment and is impulsive and has legal stressors INTELLECT: average IMPRESSIONS: Bipolar disorder, current episode depressed Alcohol use disorder, currently in early remission Nicotine dependence legal problems PLAN: -Patient is admitted under voluntary status to MHU for stabilization of psychiatric symptoms and safety. Patient has signed adult voluntary form and medication consent and is placed in patient's chart. -Medications : Will start patient on Lamictal 25 mg twice a day for mood stabilization/depression, plan to increase to 50 mg twice a day on Sunday. Spoke with patient in depth about the side effects and also risk for rash and to continue to monitor his skin he verbally understood and agreed. Start Zoloft 50 mg daily for mood/anxiety. continue with naltrexone 50 mg daily for etoh cravings. -Zyprexa and Vistaril PRN for agitation/aggression -Patient was informed of the risks, benefits and side effects of the medication and patient verbally consented to taking the medications. Patient signed med c onsent form and was placed in chart. -Internal Medicine consult to perform medical evaluation and physical. -NRT - nicotine patch - on board for discharge planning. Encourage patient to participate in groups to work on coping skills. 02/23/23 11:32 02/23/23 11:38
[2023-02-23] MEDS: SERTRALINE 50 MG TAB PO SCH (12:29)
[2023-02-23] MEDS: lamoTRIgine 25 MG TAB PO SCH ×2 (12:29→21:01)
[2023-02-23] MEDS: NICOTINE GUM (POLACRILEX) 2 MG GUM BUCCAL PRN ×2 (12:31→21:03)
--- NOTE | 2023-02-23 14:28 | CONS ---
CONSULTATION REASON FOR CONSULTATION: Advice regarding asthma and other medical issues requested by Psychiatry. HISTORY OF PRESENT ILLNESS: This is a 32-year-old gentleman with past medical history of asthma, polysubstance abuse, who was admitted to psychiatric evaluation for depression, bipolar. There is no history of any fever, rigors or chills at this time. The patient is not using any inhalers at home. The patient had history of EtOH also. PAST MEDICAL HISTORY: Reviewed include asthma, GI bleed, myocardial infarction, history of cardiac catheterization. Rest of the history and rest of the chart is also reviewed. HOME MEDICATIONS: Reviewed. Wellbutrin XL. Dose and rest of medications reviewed. ALLERGIES: None. FAMILY HISTORY: History of diabetes mellitus in the family. SOCIAL HISTORY: Polysubstance abuse, alcohol. REVIEW OF SYSTEMS: Fourteen-point review is negative except as mentioned earlier. PHYSICAL EXAMINATION: VITAL SIGNS: Pulse is 74, blood pressure 120/60, respirations 18. HEENT: Conjunctivae normal. NECK: No jugular venous distention. CARDIOVASCULAR: S1 and S2. RESPIRATORY: Breath sounds diminished at the bases. ABDOMEN: Soft, nontender. LEGS: No edema. NERVOUS SYSTEM: No focal deficits. SKIN: No ulcers or rashes. JOINTS: No active deforming arthropathy. LABORATORY DATA: CBC, CMP noted. ASSESSMENT: 1. Bipolar/depression. 2. History of polysubstance abuse. 3. History of asthma. 4. History of gastrointestinal bleed. 5. Multiple medical issues. RECOMMENDATIONS: This is a 32-year-old gentleman who presented for psychiatric evaluation, is currently medically stable. I would recommend to resume the home medications and inhalers may be used on a p.r.n. basis if needed. Otherwise, continue with psychiatric followup and arrange followup with the primary physician in the outpatient setting. The labs are reviewed within normal limits. MMODL / IJN: [id number] /
[2023-02-24 02:14] LABS: Chol/HDL Ratio 3.45 Ratio; LDL Cholesterol,Calculated 65.3 mg/dL (0.0-131.0)
[2023-02-24] MEDS: SERTRALINE 50 MG TAB PO SCH (09:01)
[2023-02-24] MEDS: lamoTRIgine 25 MG TAB PO SCH ×2 (09:01→20:59)
[2023-02-24] MEDS: NALTREXONE HCL 50 MG TAB PO SCH (09:01)
[2023-02-24] MEDS: NICOTINE GUM (POLACRILEX) 2 MG GUM BUCCAL PRN ×4 (09:04→20:59)
--- NOTE | 2023-02-24 10:37 | P.PN ---
Subjective Progress Note Date: 02/24/23 Principal diagnosis: IMPRESSIONS: Bipolar disorder, current episode depressed Alcohol use disorder, currently in early remission Nicotine dependence legal problems Patient Name: Logan Cruz Date of : 86 Patient Status: Inpatient Attending Provider: Holden Gann Subjective data: Patient reports that he is currently in the hospital because of depression and suicidal ideations He states that he has been drinking quite heavily but he has stopped so since December of this year He says that he was hospitalized here under similar circumstances in December of this year also He says that he currently lives alone but has been bouncing back and forth between mom and sister He says that he has a history of suicidal ideations in the past He admits that he'll has not been very compliant with this treatment needs to take his medications on a regular basis He says that he is feeling better and wants to get better and have better control over his alcohol abuse : Patient was born and raised in [place] and then moved to [place]. 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 He states that he is single, has no kids. He has never been in correction however and recently got his third DUI. MENTAL STATUS EXAM: General Appearance: Patient appears to be tall, fairly groomed, stated age is alert, directable, and attempts to cooperate. Behavior: Patient is standing and shows no psychomotor agitation or anxiety He was cooperative Speech: Patient's speech is fluent and nonpressured. Monotone Mood/Affect: Patient reports their mood is depressed, affect is congruent and constricted. Suicidality/Homicidality: Patient denies having any homicidal ideation intent or plan. Denies any suicidal ideations intent or plan Perceptions: Patient denies any visual hallucinations and denies any auditory hallucinations Though content/process: There is no evidence of any delusional thought content and thought process is linear and goal-directed. [place] Memory and concentration: AOX3, grossly intact for the purposes of this session. Can spell "WORLD" backwards Judgment and insight: poor STRENGTHS/WEAKNESSES: strength is that patient is resilient. Weakness is that patient has poor judgment and is impulsive and has legal stressors INTELLECT: average IMPRESSIONS: Bipolar disorder, current episode depressed Alcohol use disorder, currently in early remission Nicotine dependence legal problems PLAN: -Patient is admitted under voluntary status to MHU for stabilization of psychiatric symptoms and safety. Patient has signed adult voluntary form and medication consent and is placed in patient's chart. -Medications :patient on Lamictal 25 mg twice a day for mood stabilization/depression, plan is to increase to 50 mg twice a day on Sunday. Spoke with patient in depth about the side effects and also risk for rash and to continue to monitor his skin he verbally understood and agreed. Zoloft 50 mg daily for mood/anxiety. continue with naltrexone 50 mg daily for etoh cravings. -Zyprexa and Vistaril PRN for agitation/aggression -Patient was informed of the risks, benefits and side effects of the medication and patient verbally consented to taking the medications. Patient signed med consent form and was placed in chart. -Internal Medicine consult to perform medical evaluation and physical. -NRT - nicotine patch -SW on board for discharge planning. Encourage patient to participate in groups to work on coping skills. 02/24/23 Objective - Vital Signs Vital signs: Vital Signs Temp 98.1 F 02/24/23 05:00 Pulse 61 02/24/23 05:00 Resp 16 02/24/23 05:00 BP 92/51 02/24/23 05:00 Pulse Ox 96 02/24/23 05:00 FiO2 - Labs CBC & Chem 7: 02/23/23 08:35 02/23/23 08:35 Labs: Abnormal Lab Results - Last 24 Hours (Table) 02/23/23 Range/Units 08:35 HDL Cholesterol 38.50 L (40.00-60.00) mg/dL
[2023-02-25] MEDS: lamoTRIgine 25 MG TAB PO SCH ×2 (08:54→21:08)
[2023-02-25] MEDS: SERTRALINE 50 MG TAB PO SCH (08:54)
[2023-02-25] MEDS: NALTREXONE HCL 50 MG TAB PO SCH (08:54)
[2023-02-25] MEDS: NICOTINE GUM (POLACRILEX) 2 MG GUM BUCCAL PRN ×3 (08:56→21:10)
--- NOTE | 2023-02-25 09:41 | P.PN ---
Subjective Progress Note Date: 02/25/23 Principal diagnosis: IMPRESSIONS: Bipolar disorder, current episode depressed Alcohol use disorder, currently in early remission Nicotine dependence legal problems Patient Name: Logan Cruz Date of : 86 Patient Status: Inpatient Attending Provider: Holden Gann Subjective data: The patient was seen for a follow-up Patient reports that he slept better He states that he is working on some affirmations and is writing them down so that he can keep remembering them and following them Patient also reports that he's been reading the alcohol anonymous book on a daily basis He says that he used to attend AA meetings on a regular basis He admits that he needs to start attending the meetings after discharge He admits that he was using alcohol and cocaine abuse to getting extremely depressed He denies any suicidal ideations or plans He denies any racing thoughts at this time He states that he started to feel better MENTAL STATUS EXAM: General Appearance: Patient appears to be tall, fairly groomed, stated age is alert, directable, and attempts to cooperate. Behavior: Patient is standing and shows no psychomotor agitation or anxiety He was cooperative Speech: Patient's speech is fluent and nonpressured. Monotone Mood/Affect: Patient reports their mood is depressed, affect is congruent and constricted. Suicidality/Homicidality: Patient denies having any homicidal ideation intent o r plan. Denies any suicidal ideations intent or plan Perceptions: Patient denies any visual hallucinations and denies any auditory hallucinations Though content/process: There is no evidence of any delusional thought content and thought process is linear and goal-directed. [place] Memory and concentration: AOX3, grossly intact for the purposes of this session. Can spell "WORLD" backwards Judgment and insight: poor STRENGTHS/WEAKNESSES: strength is that patient is resilient. Weakness is that patient has poor judgment and is impulsive and has legal stressors INTELLECT: average IMPRESSIONS: Bipolar disorder, current episode depressed Alcohol use disorder, currently in early remission Nicotine dependence legal problems PLAN: -Patient is admitted under voluntary status to MHU for stabilization of psychiatric symptoms and safety. Patient has signed adult voluntary form and medication consent and is placed in patient's chart. -Medications :patient on Lamictal 25 mg twice a day for mood stabilization/depression, plan is to increase to 50 mg twice a day on Sunday. Spoke with patient in depth about the side effects and also risk for rash and to continue to monitor his skin he verbally understood and agreed. Zoloft 50 mg daily for mood/anxiety. continue with naltrexone 50 mg daily for etoh cravings. -Zyprexa and Vistaril PRN for agitation/aggression -Patient was informed of the risks, benefits and side effects of the medication and patient verbally consented to taking the medications. Patient signed med consent form and was placed in chart. -Internal Medicine consult to perform medical evaluation and physical. -NRT - nicotine patch -SW on board for discharge planning. Encourage patient to participate in groups to work on coping skills. 02/25/23 Objective - Vital Signs Vital signs: Vital Signs Temp 97.3 F L 02/25/23 06:43 Pulse 54 L 02/25/23 06:43 Resp 18 02/25/23 06:43 BP 105/54 02/25/23 06:43 Pulse Ox 98 02/25/23 06:43 FiO2 - Labs CBC & Chem 7: 02/23/23 08:35 02/23/23 08:35
[2023-02-26] MEDS: NALTREXONE HCL 50 MG TAB PO SCH (08:59)
[2023-02-26] MEDS: SERTRALINE 50 MG TAB PO SCH (08:59)
[2023-02-26] MEDS: lamoTRIgine 25 MG TAB PO SCH ×2 (08:59→20:47)
[2023-02-26] MEDS: NICOTINE GUM (POLACRILEX) 2 MG GUM BUCCAL PRN ×3 (09:01→20:50)
[2023-02-26] MEDS ORDERED: traZODone HCL 50 MG TAB PO PRN (10:42)
--- NOTE | 2023-02-26 10:48 | P.PN ---
Progress Note - Text Progress Note Date: 02/26/23 Interval History: Patient was seen [wandering the hallways] and was directable and agreeable to speak with play writer in the office. Patient states that he had a difficult weekend, states that he is not sleeping well. He claims that he might be having a intolerance to Zoloft and states that he was feeling "like my chest was tight and more anxious when I take it". He was requesting to have a change we spoke about different options and he was agreeable to try Cymbalta. States that he is tolerating this Lamictal pretty well denying any rash at this time. States that he feels he is having less mood swings and less irritability. Claims that he has been trying to go to some groups, participating, improving appetite. At this time patient denies any suicidal or homical ideations, intent or plan. Patient denies any auditory, visual hallucinations and denies any paranoia or delusions. patient has been taking his medications as prescribed. Mental Status Exam: General Appearance: Patient appears to be tall, fairly groomed, stated age is alert, directable, and attempts to cooperate. Patient appears to have improving mildly hygiene and grooming. Behavior: Patient is seated without any agitated behavior. Improving eye contact. Speech: Patient's speech is fluent and nonpressured. Monotone, improving mildly Mood/Affect: Patient reports their mood is depressed, improving mildly, affect is congruent Suicidality/Homicidality: Patient denies having any homicidal ideation intent or plan. Denies any suicidal ideations intent or plan Perceptions: Patient denies any visual hallucinations and denies any auditory hallucinations Though content/process: There is no evidence of any delusional thought content and thought process is linear and goal-directed. [place] Memory and concentration: AOX3, grossly intact for the purposes of this session. Judgment and insight: Improving mildly IMPRESSIONS: Bipolar disorder, current episode depressed Alcohol use disorder, currently in early remission Nicotine dependence legal problems PLAN: -Patient is admitted under voluntary status to MHU for stabilization of psychiatric symptoms and safety. Patient has signed adult voluntary form and medication consent and is placed in patient's chart. -Medications : Lamictal 50 mg twice a day for mood stabilization/depression. d/c Zoloft and replace with cymbalta 30 mg daily for mood/anxiety. continue with naltrexone 50 mg daily for etoh cravings. added trazodone 50 mg qhs for sleep plue 50 mg prn for insomnia. -Zyprexa and Vistaril PRN for agitation/aggression -NRT - nicotine patch -SW on board for discharge planning. Encourage patient to participate in groups to work on coping skills. likely discharge in 2-3 days back home. 02/23/23 11:32
[2023-02-26] MEDS: DULoxetine HCL 30 MG CAPSULE.DR PO SCH (11:55)
[2023-02-27] MEDS: traZODone HCL 50 MG TAB PO SCH ×2 (00:23→23:26)
[2023-02-27] MEDS: DULoxetine HCL 30 MG CAPSULE.DR PO SCH ×2 (08:55→19:58)
[2023-02-27] MEDS: lamoTRIgine 25 MG TAB PO SCH ×2 (08:55→19:58)
[2023-02-27] MEDS: NALTREXONE HCL 50 MG TAB PO SCH (08:55)
[2023-02-27] MEDS: NICOTINE GUM (POLACRILEX) 2 MG GUM BUCCAL PRN ×3 (08:57→19:59)
--- NOTE | 2023-02-27 10:24 | P.PN ---
Progress Note - Text Progress Note Date: 02/27/23 Interval History: Patient was seen sitting in on group today and was directable and agreeable to speak with policy writer typist in the office. Patient claims that today he is doing a bit better. States that he is tolerating the Cymbalta better than Zoloft. States that the mood swings have also been improving. Claims that he did speak with his mother who is concerned about his sleep. He states that the trazodone has been helping with sleep and claimed that he only 50 mg yesterday to help him with sleep through the night. He was asking about potential discharge tomorrow. He also was asking about where he will be following up for his psychiatric care. Claims that he is eating fairly, getting along with other patients on the unit and attending as many groups as he can. Claims that the mood and anxiety are improving as well. At this time patient denies any suicidal or homical ideations, intent or plan. Patient denies any auditory, visual hallucinations and denies any paranoia or delusions. patient has been taking his medications as prescribed. Mental Status Exam: General Appearance: Patient appears to be tall, fairly groomed, stated age is alert, directable, and attempts to cooperate. Patient appears to have improving mildly hygiene and grooming. Behavior: Patient is seated without any agitated behavior. Improving eye contact. Speech: Patient's speech is fluent and nonpressured. Monotone, improving mildly Mood/Affect: Patient reports their mood is improving mildly, affect is congruent and improving mildly. Suicidality/Homicidality: Patient denies having any homicidal ideation intent or plan. Denies any suicidal ideations intent or plan Perceptions: Patient denies any visual hallucinations and denies any auditory hallucinations Though content/process: There is no evidence of any delusional thought content and thought process is linear and goal-directed. [place], more future oriented today. Memory and concentration: AOX3, grossly intact for the purposes of this session. Judgment and insight: Improving mildly IMPRESSIONS: Bipolar disorder, current episode depressed Alcohol use disorder, currently in early remission Nicotine dependence legal problems PLAN: -Patient is admitted under voluntary status to MHU for stabilization of psychiatric symptoms and safety. Patient has signed adult voluntary form and medication consent and is placed in patient's chart. -Medications : Lamictal 50 mg twice a day for mood stabilization/depression. increase cymbalta 30 mg BID for mood/anxiety. continue with naltrexone 50 mg daily for etoh cravings. continue trazodone 50 mg qhs for sleep plue 50 mg prn for insomnia -Zyprexa and Vistaril PRN for agitation/aggression -NRT - nicotine patch -SW on board for discharge planning. Encourage patient to participate in groups to work on coping skills. likely discharge tomorrow back home, SW to call and ensure safety with home envt with mother.
[2023-02-28 06:57] VITALS: BP 120/74; PULSE 74; RESP 17; TEMP 97.9
[2023-02-28] MEDS: lamoTRIgine 25 MG TAB PO SCH (08:53)
[2023-02-28] MEDS: NALTREXONE HCL 50 MG TAB PO SCH (08:53)
[2023-02-28] MEDS: NICOTINE GUM (POLACRILEX) 2 MG GUM BUCCAL PRN (08:54)
[2023-02-28] MEDS: DULoxetine HCL 30 MG CAPSULE.DR PO SCH (08:54)
--- NOTE | 2023-02-28 10:11 | P.DS ---
Providers Date of admission: 02/22/23 17:53 Expected date of discharge: 02/28/23 Attending physician: Holden Gann MD Consults: 02/22/23 18:00 Consult Physician Routine Consulting Provider: Daniel Gross Consult Reason/Comments: H and P Do you want consulting provider notified?: Yes Primary care physician: Ravin Barrera - Discharge Diagnosis(es) (1) Bipolar disorder current episode depressed Current Visit: Yes Status: Acute Priority: High (2) Alcohol use disorder, moderate, in early remission Current Visit: Yes Status: Acute Priority: High (3) Nicotine dependence Current Visit: Yes Status: Acute Priority: Low (4) Legal problem Current Visit: Yes Status: Acute Priority: Medium Hospital Course: Admission HPI: Admission note was completed by commercial loan underwriter "Patient is a 32-year-old male currently lives with his mother, works doing construction, single, no kids. Patient presented to the hospital yesterday and was complaining of increase in depression and also stressors. Patient was also complaining of having a short temper in the ER and does not believe that his medications are helping him at this time. Patient was also endorsing suicidal thoughts however no plan or intent. Patient was last psychiatrically admitted to the mental health unit in December 2022 who has a history of bipolar disorder. The patient was agreeable to be seen today by commercial loan underwriter in the office. Patient had poor eye contact, states that he's been feeling depressed lately. He also was mentioning fearing "irritable and snapping more on my family". He claims that he knew something was wrong because you would be "sitting there doing something and then it just start crying". He states that he does not know what's going on and claims that his medications feel like they're not helping him. He states that he has been taking them regularly. He was not able to get into his outpatient psychiatrist clinic until several months down the line. States that he is also finding work to be fairly unstable with his shifts and states that also financially he is having difficulties. Claims that he is also currently dealing with a third DUI and having to blow into a breathalyzer several times a day and currently anxiously awaiting his upcoming court hearing date. Patient denies any current suicidal or homicidal ideations intent or plan. At this time patient denies any auditory or visual hallucinations. Patient denies any flight of ideas racing thoughts and increased in goal directed behavior. Patient admits to using cigarettes only. States that he used to drink alcohol heavily however has not drank since this past December. Urine drug screen was negative." Hospital course: Upon admission to the unit patient was directable and agreeable to commence treatment and signed adult voluntary form. Patient got along well with other patients on the unit and followed unit protocol. Patient was compliant with the medications and denied any side effects throughout hospital course. Patient was started on naltrexone by mouth 50 mg daily for alcohol cravings, Lamictal 50 mg twice a day for mood stabilization/depression, Cymbalta 30 mg twice a day for mood/anxiety, trazodone 50 mg daily at bedtime for insomnia/mood.. Patient spoke of his stressors and engaged in therapy both group and individual. Patient was also seen by medical team for history and physical exam. Throughout the course of the hospitalization patient gradually improved with regards to mood, anxiety, mood swings/lability, sleep and returned back to their baseline level of functioning. On the day of discharge patient denied any suicidal or homicidal ideations intent or plan denied any auditory or visual hallucinations. Patient endorsed wanting to live for his health and future. The patient denied any access to guns or weapons. Patient denied any paranoia and did not endorse any delusions. Patient does have a significant history of substance abuse and was counseled on abstaining from all substances including alcohol and marijuana. Patient did not want to do inpatient substance rehab and opted to do outpatient counselling and stick with naltrexone for etoh cravings. Patient was also counseled on the medications and need for regular compliance and was encouraged to follow-up with their outpatient appointment for mental health and also for primary care. Prior to discharge a family meeting will be arranged by social director to answer any questions and ensure safety upon discharge. Mental status exam: General Appearance: Patient appears to be tall, wearing glasses, stated age is alert, pleasant, and cooperative. Patient is in no acute distress and has improved hygiene and grooming Behavior: Patient is calmly seated without any agitated behavior. Speech: Patient's speech is fluent and nonpressured. Mood/Affect: Patient reports their mood is "better", affect is congruent and euthymic. Suicidality/Homicidality: Patient denies having any suicidal or homicidal ideation intent or plan. Perceptions: Patient denies any auditory or visual hallucinations. Though content/process: There is no evidence of any delusional thought content and thought process is linear and goal-directed. more future oriented Memory and concentration: AOX3, grossly intact for the purposes of this session. Can spell "WORLD" backwards correctly. Judgment and insight: improved with guarded prognosis Impression: Bipolar disorder, current episode depressed Alcohol use disorder moderate, in early remission legal problems nicotine dependence Plan: -Continue with discharge today as patient has improved and stabilized psychiatrically and is not currently an imminent threat to himself and/or others. Patient will remain at chronically elevated risk for harm to self and/or others due to his impulsivity and hx of substance abuse. -Continue medications: Naltrexone 50 mg by mouth daily for alcohol cravings, Lamictal 50 mg twice a day for mood stabilization/depression, Cymbalta 30 mg twice a day for mood/anxiety, trazodone 50 mg daily at bedtime for insomnia/mood. -Patient was counseled on the need for medication compliance and appropriate follow-up at mental health and also primary care for medical issues. Patient verbalized understanding and agreed. -Social work to arrange for and conduct family meeting to ensure safety upon discharge and answer any questions/concerns. Social work also to arrange for patients follow up appointments for psychiatric care along with follow up with primary care provider. -Patient counseled on abstaining from recreational drugs and marijuana and alcohol. Was informed/educated on the adverse effects on their physical and mental health. Patient verbally agreed and understood. -Patient was instructed to return to the hospital or seek immediate medical care if their psychiatric or medical symptoms do worsen or reoccur. Allergies Allergy/AdvReac Type Severity Reaction Status Date / Time No Known Allergies Allergy Verified 02/22/23 14:31 Laboratory Results WBC 4.3 k/uL (3.8-10.6) 02/23/23 08:35 RBC 4.56 m/uL (4.30-5.90) 02/23/23 08:35 Hgb 14.7 gm/dL (13.0-17.5) 02/23/23 08:35 Hct 43.8 % (39.0-53.0) 02/23/23 08:35 MCV 96.0 fL (80.0-100.0) 02/23/23 08:35 MCH 32.3 pg (25.0-35.0) 02/23/23 08:35 MCHC 33.6 g/dL (31.0-37.0) 02/23/23 08:35 RDW 12.3 % (11.5-15.5) 02/23/23 08:35 Plt Count 174 k/uL (150-450) 02/23/23 08:35 MPV 8.3 02/23/23 08:35 Neutrophils % 63 % 02/23/23 08:35 Lymphocytes % 27 % 02/23/23 08:35 Monocytes % 6 % 02/23/23 08:35 Eosinophils % 2 % 02/23/23 08:35 Basophils % 0 % 02/23/23 08:35 Neutrophils # 2.7 k/uL (1.3-7.7) 02/23/23 08:35 Lymphocytes # 1.2 k/uL (1.0-4.8) 02/23/23 08:35 Monocytes # 0.2 k/uL (0-1.0) 02/23/23 08:35 Eosinophils # 0.1 k/uL (0-0.7) 02/23/23 08:35 Basophils # 0.0 k/uL (0-0.2) 02/23/23 08:35 Sodium 139 mmol/L (137-145) 02/23/23 08:35 Potassium 4.5 mmol/L (3.5-5.1) 02/23/23 08:35 Chloride 100 mmol/L (98-107) 02/23/23 08:35 Carbon Dioxide 31 mmol/L (22-30) H 02/23/23 08:35 Anion Gap 8 mmol/L 02/23/23 08:35 BUN 12 mg/dL (9-20) 02/23/23 08:35 Creatinine 0.84 mg/dL (0.66-1.25) 02/23/23 08:35 Est GFR (CKD-EPI)AfAm >90 (>60 ml/min/1.73 sqM) 02/23/23 08:35 Est GFR (CKD-EPI)NonAf >90 (>60 ml/min/1.73 sqM) 02/23/23 08:35 Glucose 124 mg/dL (74-99) H 02/23/23 08:[address] Glu mg/dL 103 mg/dL 02/23/23 08:35 Hemoglobin A1c 5.2 % (<=6.0) 02/23/23 08:35 Calcium 9.2 mg/dL (8.4-10.2) 02/23/23 08:35 Total Bilirubin 0.5 mg/dL (0.2-1.3) 02/23/23 08:35 AST 26 U/L (17-59) 02/23/23 08:35 ALT 25 U/L (4-49) 02/23/23 08:35 Alkaline Phosphatase 63 U/L (38-126) 02/23/23 08:35 Total Protein 7.5 g/dL (6.3-8.2) 02/23/23 08:35 Albumin 4.7 g/dL (3.5-5.0) 02/23/23 08:35 Triglycerides 146.00 mg/dL (0.00-149.00) 02/23/23 08:35 Cholesterol 133.00 mg/dL (0.00-200.00) 02/23/23 08:35 LDL Cholesterol, Calc 65.3 mg/dL (0.0-131.0) 02/23/23 08:35 VLDL Cholesterol, Calc 29.20 mg/dL (5.00-40.00) 02/23/23 08:35 HDL Cholesterol 38.50 mg/dL (40.00-60.00) L 02/23/23 08:35 Cholesterol/HDL Ratio 3.45 Ratio 02/23/23 08:35 TSH 2.300 mIU/L (0.465-4.680) 02/23/23 08:35 Urine Opiates Screen Not Detected (NotDetected) 02/22/23 13:34 Ur Oxycodone Screen Not Detected (NotDetected) 02/22/23 13:34 Urine Methadone Screen Not Detected (NotDetected) 02/22/23 13:34 Ur Propoxyphene Screen Not Detected (NotDetected) 02/22/23 13:34 Ur Barbiturates Screen Not Detected (NotDetected) 02/22/23 13:34 Oxcarbazepine 3.3 ug/mL (10-35) L 02/23/23 08:35 U Tricyclic Antidepress Not Detected (NotDetected) 02/22/23 13:34 Ur Phencyclidine Scrn Not Detected (NotDetected) 02/22/23 13:34 Ur Amphetamines Screen Not Detected (NotDetected) 02/22/23 13:34 U Methamphetamines Scrn Not Detected (NotDetected) 02/22/23 13:34 U Benzodiazepines Scrn Not Detected (NotDetected) 02/22/23 13:34 Urine Cocaine Screen Not Detected (NotDetected) 02/22/23 13:34 U Marijuana (THC) Screen Not Detected (NotDetected) 02/22/23 13:34 Coronavirus (PCR) Not Detected (Not Detectd) 02/22/23 16:15 Vital Signs Temp 97.9 F 02/28/23 06:56 Pulse 74 02/28/23 06:56 Resp 17 02/28/23 06:56 BP 120/74 02/28/23 06:56 Pulse Ox 98 02/28/23 06:56 FiO2 Patient Condition at Discharge: Stable Plan - Discharge Summary Discharge Rx Participant: Yes New Discharge Prescriptions: New lamoTRIgine [LaMICtal] 50 mg PO BID 30 Days #120 tab DULoxetine HCL [Cymbalta] 30 mg PO BID 30 Days #60 cap traZODone HCL [Desyrel] 50 mg PO HS 30 Days #30 tab hydrOXYzine pamoate [Vistaril] 50 mg PO DAILY PRN 10 Days #20 cap PRN Reason: Anxiety Continue Nicotine Gum (Polacrilex) [Nicorette] 2 mg BUCCAL Q4HR PRN 30 Days #180 pieceofgum PRN Reason: Nicotine Cravings Naltrexone HCl [Revia] 50 mg PO DAILY 30 Days #30 tab EPINEPHrine (Auto Inject) [Epipen] 0.3 mg IM ONCE PRN PRN Reason: Anaphylaxis Discontinued OXcarbazepine [Trileptal] 300 mg PO BID 30 Days #60 tab buPROPion XL [Wellbutrin XL] 150 mg PO DAILY 30 Days #30 tab Discharge Medication List EPINEPHrine (Auto Inject) [Epipen] 0.3 mg IM ONCE PRN 01/06/23 [History] DULoxetine HCL [Cymbalta] 30 mg PO BID 30 Days #60 cap 02/28/23 [Rx] Naltrexone HCl [Revia] 50 mg PO DAILY 30 Days #30 tab 02/28/23 [Rx] Nicotine Gum (Polacrilex) [Nicorette] 2 mg BUCCAL Q4HR PRN 30 Days #180 pieceofgum 02/28/23 [Rx] hydrOXYzine pamoate [Vistaril] 50 mg PO DAILY PRN 10 Days #20 cap 02/28/23 [Rx] lamoTRIgine [LaMICtal] 50 mg PO BID 30 Days #120 tab 02/28/23 [Rx] traZODone HCL [Desyrel] 50 mg PO HS 30 Days #30 tab 02/28/23 [Rx] Follow up Appointment(s)/Referral(s): Michelle Arriola [Outside] - 03/08/23 5:00 pm (with Juan via [facility] ) Ravin Barrera DO [Primary Care Provider] - 1-2 days Discharge Disposition: HOME SELF-CARE
== END 2023-02-28 13:00 | disposition home or self-care (01) | DRG 753 ==
LOC: EC 13:05 → 3MHU 17:53
PROVIDERS: ADMIT Psychiatry & Neurology Psychiatry; ATTEND Psychiatry & Neurology Psychiatry
DX: F31.30 Bipolar disorder, current episode depressed, mild or moderate severity, unspecified (principal); R45.851 Suicidal ideations; F10.21 Alcohol dependence, in remission; Z20.822 Contact with and (suspected) exposure to COVID-19; Z28.310 Unvaccinated for COVID-19; G47.00 Insomnia, unspecified; J45.909 Unspecified asthma, uncomplicated; I25.2 Old myocardial infarction; F17.210 Nicotine dependence, cigarettes, uncomplicated; Z71.6 Tobacco abuse counseling; Z79.899 Other long term (current) drug therapy; Z91.51 Personal history of suicidal behavior; Z65.3 Problems related to other legal circumstances; Z59.6 Low income; Z71.41 Alcohol abuse counseling and surveillance of alcoholic; Z71.51 Drug abuse counseling and surveillance of drug abuser
CPT/HCPCS: 80053; 80061; 80183; 80306; 82075; 83036; 84443; 85025; 87635; 99285

== ENCOUNTER 2023-03-27 18:28 | Emergency (ER) | payer MEDICAID ==
[2023-03-27 18:56] VITALS: RESP 18; TEMP 98.6
--- NOTE | 2023-03-27 19:00 | ED ---
General Adult HPI - General Source: patient Mode of arrival: ambulatory Limitations: no limitations <Sierra Cuevas - Last Filed: 03/27/23 18:57> - General Source: patient, RN notes reviewed Mode of arrival: ambulatory Limitations: no limitations <Fadia Arroyo - Last Filed: 03/27/23 20:54> - General Chief complaint: Extremity Problem,Nontraumatic Stated complaint: Left Leg Injury, Med Refill Time Seen by Provider: 03/27/23 18:57 - History of Present Illness Initial comments: 32-year-old male presents emergency department chief complaint of abrasion to his left leg. He states that this occurred last week when he was at baseball. He states since then he has noticed an increase in erythema around the wound. He also reports that he is on side of his medications and he is unable to see his primary care physician until Sunday of next week. These medications include naltrexone and Cymbalta. (Sierra Cuevas) When I went to evaluate the patient, he reiterated the same information is listed above. He has been trying to keep wound clean and allow to air out, but is concerned that it is becoming more painful and the redness is starting to spread, and is worried about developing an infection. He does also request a refill on his psychiatric medication, as he cannot see his primary care provider for another week and he only has a few doses left. States that these are working well for him and he is taking them as prescribed. (Fadia Arroyo) - Related Data Home Medications Medication Instructions Recorded Confirmed EPINEPHrine (Auto Inject) [Epipen] 0.3 mg IM ONCE PRN 01/06/23 02/22/23 Previous Rx's Medication Instructions Recorded Nicotine Gum (Polacrilex) 2 mg BUCCAL Q4HR PRN 30 Days #180 02/28/23 [Nicorette] pieceofgum hydrOXYzine pamoate [Vistaril] 50 mg PO DAILY PRN 10 Days #20 cap 02/28/23 traZODone HCL [Desyrel] 50 mg PO HS 30 Days #30 tab 02/28/23 Cephalexin [Keflex] 500 mg PO Q8HR 7 Days #21 cap 03/27/23 DULoxetine HCL [Cymbalta] 30 mg PO BID 30 Days #60 cap 03/27/23 Naltrexone HCl [Revia] 50 mg PO DAILY 30 Days #30 tab 03/27/23 lamoTRIgine [LaMICtal] 50 mg PO BID 30 Days #120 tab 03/27/23 Allergies Allergy/AdvReac Type Severity Reaction Status Date / Time No Known Allergies Allergy Verified 03/27/23 18:55 Review of Systems ROS Other: All systems not noted in ROS Statement are negative. <Sierra Cuevas - Last Filed: 03/27/23 18:57> ROS Other: All systems not noted in ROS Statement are negative. <Fadia Arroyo - Last Filed: 03/27/23 20:54> ROS Statement: Those systems with pertinent positive or pertinent negative responses have been documented in the HPI. Past Medical History Past Medical History: Asthma, GI Bleed, Myocardial Infarction ([place]), Pneumonia Additional Past Medical History / Comment(s): Asthma as child. Pt states he had a heart attack after overdose 06/2020, had a cardiac cath - nl. Pneumonia 07/2020. Lt hand pain occ d/t old injury. Last Myocardial Infarction Date:: 2019 History of Any Multi-Drug Resistant Organisms: None Reported Past Surgical History: Heart Catheterization, Orthopedic Surgery Additional Past Surgical History / Comment(s): ORIF lt forearm. Heart cath 07/05. Past Anesthesia/Blood Transfusion Reactions: No Reported Reaction Past Psychological History: Anxiety, Bipolar, Depression Smoking Status: Current some day smoker Past Alcohol Use History: Abuse, Daily Past Drug Use History: Cocaine, Heroin - Past Family History Father Family Medical History: Diabetes Mellitus Mother History Unknown: Yes Family Medical History: No Reported History <Sierra Cuevas - Last Filed: 03/27/23 18:57> General Exam Limitations: no limitations <Sierra Cuevas - Last Filed: 03/27/23 18:57> Limitations: no limitations General appearance: alert, in no apparent distress Head exam: Present: atraumatic, normocephalic, normal inspection Respiratory exam: Present: normal lung sounds bilaterally. Absent: respiratory distress, wheezes, rales, rhonchi, stridor Cardiovascular Exam: Present: regular rate, normal rhythm, normal heart sounds. Absent: systolic murmur, diastolic murmur, rubs, gallop, clicks Extremities exam: Present: other (Large superficial abrasion to the lateral aspect of the left calf and faustin. No active bleeding. There is surrounding erythema. No drainage) Neurological exam: Present: alert, oriented X3, CN II-XII intact Psychiatric exam: Present: normal affect, normal mood <Fadia Arroyo - Last Filed: 03/27/23 20:54> - General Exam Comments Initial Comments: Visual Physical Exam Vital signs reviewed General: Well-appearing, nontoxic, no acute distress. Head: Normocephalic, atraumatic Eyes: PERRLA, EOMI ENT: Airway patent Chest: Nonlabored breathing Skin: No visual rash, normal skin tone, abrasion to left leg with surrounding erythema Neuro: Alert and oriented 3 Musculoskeletal: No gross abnormalities (Sierra Cuevas) Course Vital Signs 03/27/23 03/27/23 18:52 19:50 Temperature 98.6 F Pulse Rate 59 L 60 Respiratory 18 18 Rate Blood Pressure 129/76 113/62 O2 Sat by Pulse 98 100 Oximetry Medical Decision Making <Sierra Cuevas - Last Filed: 03/27/23 18:57> <Fadia Arroyo - Last Filed: 03/27/23 20:54> - Medical Decision Making I performed the quick note portion of this chart electronically signed by Sierra Cuevas PA-C (Sierra Cuevas) This is a 32-year-old male who presents to the emergency department for a wound to the left lower extremity and a medication refill. Was pt. sent in by a medical professional or institution? @ -No Did you speak to anyone other than the patient for history? @ -No Did you review nursing and triage notes? @ -Yes, and I agree, it is accurate with regards to the patient's symptoms. Were old charts reviewed? @ -No Differential Diagnosis? @ -Differential Leg Pain/Redness: Fracture, dislocation, irritation, abrasion, cellulitis, this is not meant to be an all-inclusive list. EKG interpreted by me (3pts min.)? @ -Not obtained X-rays interpreted by me (1pt min.)? @ -Not obtained CT interpreted by me (1pt min.)? @ -Not obtained U/S interpreted by me (1pt. min.)? @ -Not obtained What testing was considered but not performed? (CT, X-rays, U/S, labs)? Why? @ -None What meds were considered but not given? Why? @ -None Did you discuss the management of the patient with other professionals? @ -No Did you reconcile home meds? @ -No Was smoking cessation discussed for >3mins.? @ -No Was critical care preformed (if so, how long)? @ -No Were there social determinants of health that impacted care today? How? (Homelessness, low income, unemployed, alcoholism, drug addiction, transportation, low edu. Level, literacy, decrease access to med. care, prison, rehab)? @ -No Was there de-escalation of care discussed even if they declined? (Discuss DNR or withdrawal of care, Hospice)? @ -No What co-morbidities impacted this encounter? (DM, HTN, Smoking, COPD, CAD, Cancer, CVA, Hep., AIDS, mental health diagnosis, sleep apnea, morbid obesity)? @ -Psychiatric illness Was patient admitted / discharged? @ -Discharged. The superficial abrasion did appear to have surrounding erythema suggestive of a developing cellulitis. We'll put the patient on a course of Keflex, and this was subsequently prescribed. Advised he continue to make sure that this stays clean. Additionally, I was willing to provide a refill on his psychiatric medications. None of these are controlled substances and discontinuing them abruptly could cause more severe consequences. Refill on Cymbalta, naltrexone, and Lamictal provided. He will otherwise follow up with his primary care provider for medication maintenance and reevaluation of the wound on his left lower extremity. Undiagnosed new problem with uncertain prognosis? @ -None Drug Therapy requiring intensive monitoring for toxicity (Heparin, Nitro, Insulin, Cardizem)? @ -None Were any procedures done? @ -None Diagnosis/symptom? @ -Cellulitis, medication refill Acute, or Chronic, or Acute on Chronic? @ -Acute Uncomplicated (without systemic symptoms) or Complicated (systemic symptoms)? @ -Uncomplicated Side effects of treatment? @ -None Exacerbation, Progression, or Severe Exacerbation] @ -Not applicable Poses a threat to life or bodily function? @ -No Return precautions reviewed in depth, the patient is instructed to return to the emergency department with any new, worsening, or concerning symptoms. Patient verbalized understanding. This case was discussed in detail with the attending ED physician, Dr. Retana. Presentation, findings, and treatment plan discussed in detail as well. (Fadia Arroyo) Disposition <Sierra Cuveas - Last Filed: 03/27/23 18:57> Is patient prescribed a controlled substance at d/c from ED?: No <Fadia Arroyo - Last Filed: 03/27/23 20:54> Clinical Impression: Cellulitis, Medication refill Disposition: HOME SELF-CARE Instructions (If sedation given, give patient instructions): Cellulitis (ED) Additional Instructions: Return to the emergency department with any new, worsening, or concerning symptoms. Continue to wash out the wound to keep it clean. Take the antibiotic as prescribed for 7 days. Alternate with ibuprofen and Tylenol as needed for pain relief. Follow up with your primary care provider in 1-2 days. Prescriptions: DULoxetine HCL [Cymbalta] 30 mg PO BID 30 Days #60 cap Cephalexin [Keflex] 500 mg PO Q8HR 7 Days #21 cap lamoTRIgine [LaMICtal] 50 mg PO BID 30 Days #120 tab Naltrexone HCl [Revia] 50 mg PO DAILY 30 Days #30 tab Referrals: Ravin Barrera DO [Primary Care Provider] - 1-2 days
[2023-03-27] MEDS ORDERED: IBUPROFEN 600 MG STARTER PACK 4 TAB BTL PO STA (19:36)
[2023-03-27] MEDS ORDERED: CEPHALEXIN 500MG STARTER PACK 4 CAP BTL PO STA (19:36)
[2023-03-27 19:52] VITALS: BP 113/62; PULSE 60
== END 2023-03-27 20:16 | disposition home or self-care (01) ==
LOC: EC 18:28
DX: S80.812A Abrasion, left lower leg, initial encounter (principal); Z76.0 Encounter for issue of repeat prescription; J45.909 Unspecified asthma, uncomplicated; I25.2 Old myocardial infarction; F17.200 Nicotine dependence, unspecified, uncomplicated; Z86.59 Personal history of other mental and behavioral disorders; X58.XXXA Exposure to other specified factors, initial encounter; Y93.67 Activity, basketball
CPT/HCPCS: 99283